=== PATIENT | female | born 1970 ===

== ENCOUNTER 2017-04-27 07:09 | Inpatient (IN) | payer MEDICARE, MEDICAID ==
[2017-04-27 07:10] VITALS: BMI 29.2
[2017-04-27] MEDS ORDERED: Naloxone 0.4 mg/ml Inj (Adult) ONE (07:44)
--- NOTE | 2017-04-27 07:56 | ED PDOC ---
HPI: Psych/Substance Abuse Time Seen by Provider: 04/27/17 07:18 Chief Complaint (Nursing): Substance Abuse Chief Complaint (Provider): Substance abuse History Per: Patient, Family History/Exam Limitations: no limitations Onset/Duration Of Symptoms: Days (x1) Current Symptoms Are (Timing): Still Present Suicide/Self Injury Attempted (Context): None Associated Symptoms: denies: Other (headache, vision changes or neck stiffness) Involuntary Hold By: None Additional History Per: EMS Additional Complaint(s): Monae Sanchez is a 47 year old female, with a past medical history of anxiety , bipolar disorder, and depression, who was brought to the emergency department by EMS accompanied by parents for drug abuse onset today. Patient admits to have used crack, cocaine, and heroin today. Patient denies any headache, visual changes or neck stiffness. Full HPI limited due to patient's condition. PMD: None provided. Past Medical History Reviewed: Historical Data, Nursing Documentation, Vital Signs Vital Signs: Last Vital Signs Temp Pulse 92 H 04/27/17 07:30 Resp 10 L 04/27/17 07:40 BP 135/100 H 04/27/17 07:30 Pulse Ox 80 L 04/27/17 07:40 - Medical History PMH: Anxiety, Bipolar Disorder, Depression, Hypercholesterolemia, Hyperthyroidism Denies: Diabetes, Hepatitis, HIV, HTN, Seizures, Sexually Transmitted Disease - Surgical History Surgical History: Denies: Pacemaker - Family History Family History: States: Unknown Family Hx - Social History Drugs: Cocaine, Opiates (heroin) - Immunization History Hx Tetanus Toxoid Vaccination: No Hx Influenza Vaccination: No Hx Pneumococcal Vaccination: No - Home Medications Home Medications: Ambulatory Orders Medication Instructions Recorded Levothyroxine [Synthroid] 100 mcg PO DAILY 10/26/16 Gabapentin [Neurontin] 400 mg PO TID 01/23/17 ARIPiprazole [Abilify] 2 mg PO HS 04/27/17 Apixaban [Eliquis] 5 mg PO Q12H 04/27/17 Citalopram [celEXA] 20 mg PO DAILY 04/27/17 Divalproex [Depakote DR] 500 mg PO BID 04/27/17 Mirtazapine [Remeron] 15 mg PO HS 04/27/17 Topiramate [Topamax] 50 mg PO HS 04/27/17 clonazePAM [Klonopin] 0.5 mg PO TID PRN 04/27/17 - Allergies Allergies/Adverse Reactions: Allergies Allergy/AdvReac Type Severity Reaction Status Date / Time meperidine [From Demerol] Allergy RASH Verified 01/26/17 10:51 shellfish derived Allergy SWELLING Verified 01/26/17 10:51 Review of Systems Constitutional: Positive for: Other (drug use) Eyes: Negative for: Vision Change Musculoskeletal: Negative for: Neck Pain (stiffness) Neurological: Negative for: Headache Physical Exam - Reviewed Nursing Documentation Reviewed: Yes Vital Signs Reviewed: Yes - Physical Exam Head Exam: Positive for: ATRAUMATIC, NORMAL INSPECTION, NORMOCEPHALIC Skin: Negative for: Warm (cold) Eye Exam: Positive for: Other (pinpoint pupils) Neck: Positive for: Normal, Painless ROM, Supple Cardiovascular/Chest: Positive for: Tachycardia (regular rhythm) Respiratory: Positive for: Normal Breath Sounds. Negative for: Respiratory Distress Neurologic/Psych: Positive for: Oriented (x3) Comments: Patient is arousable to verbal stimuli. Shaking body. - Laboratory Results Result Diagrams: 04/27/17 08:00 04/27/17 10:27 - ECG O2 Sat by Pulse Oximetry: 80 (RA) Pulse Ox Interpretation: Abnormal - Progress ED Course And Treament: Pt remains arousable to verbal stimuli, no complaints. Denies CURTIS, neck stiffness, visual changes. Re-evaluation Time: 11:52 - Physician Consult Information Time Consulting Physican Contacted: 12:38 Physician Contacted: Keith Kim Outcome Of Conversation: Recommends addition of Vancomycin 1 g IV. - Core Measure Core Measure Indicators: Code Sepsis - Critical Care Total Time (In Min): 100 Medical Decision Making Medical Decision Making: Initial Impression: substance abuse Initial Plan: --VBG Shock Panel --EKG --Alcohol serum --Comp Metabolic Panel --Drug screen, urine --HCG, Qualitative serum --Thyroid stimulating hormone --Troponin I --Urine dipstick --Urine --CBC w/ differential --PTT --PT --Chest portable [RAD] --Sodium Chloride IV 1,000 ml @ 125 mls/hr --Blood culture --Urine culture --Influenza A B --Urinalysis --reevaluation 0910 -Code sepsis called 1013 CXR FINDINGS: LUNGS: Somewhat triangular-shaped radiopaque density seen in the right medial lung base. Findings may represent atelectasis. Developing lower lobe infiltrates could be excluded with followup studies. PLEURA: No significant pleural effusion identified, no pneumothorax apparent. CARDIOVASCULAR: Normal. OSSEOUS STRUCTURES: No significant abnormalities. VISUALIZED UPPER ABDOMEN: Normal. OTHER FINDINGS: None. IMPRESSION: Radiopaque density in the right lung base could represent atelectasis and/or developing infiltrate right lung base. Scribe Attestation: Documented by Mayank Kern, acting as a scribe for Dimple Lee MD Provider Scribe Attestation: All medical record entries made by the Scribe were at my direction and personally dictated by me. I have reviewed the chart and agree that the record accurately reflects my personal performance of the history, physical exam, medical decision making, and the department course for this patient. I have also personally directed, reviewed, and agree with the discharge instructions and disposition. Procedures - Time-Out Correct Patient (with visual ID + MR# on ID Band): Yes Correct Procedure: Yes - Central Line Central Line Lumen: triple Central Line Procedure: betadine prep, sterile drapes applied, sterile dressing applied Central Line Postion: femoral (R) Anesthesia: Lidocaine Complications: none Central Line Post Position: good blood return Disposition - Clinical Impression Clinical Impression: Septic shock - Patient ED Disposition Is Patient to be Admitted: Yes - Disposition Disposition Time: 11:00 Condition: CRITICAL - Pt Status Changed To: Hospital Disposition Of: Inpatient - Admit Certification Admit to Inpatient:: After my assessment, the patient will require hospitalization for at least two midnights. This is because of the severity of symptoms shown, intensity of services needed, and/or the medical risk in this patient being treated as an outpatient. - POA Present On Arrival: None
[2017-04-27] MEDS ORDERED: Sodium Chloride 0.9% 1,000 ML IV STA (08:03)
[2017-04-27 08:14] LABS: BASO % 0.1 % (0.0-2.0); HEMATOCRIT 43.4 % (34.0-47.0); LYMPH # 1.5 K/uL (1.0-4.3); LYMPH % 8.3 % (20.0-40.0); MEAN CORPUSCULAR HGB CONC 31.5 g/dL (33.0-37.0); MEAN PLATELET VOLUME 7.6 fl (7.2-11.7); MONO # 0.8 K/uL (0.0-0.8); MONO % 4.6 % (0.0-10.0); NEUT # 16.1 K/uL (1.8-7.0); NRBC % 0.1 % (0.0-0.0); PLATELET COUNT 335 K/uL (130-400); RED CELL DISTRIBUTION WIDTH 16.1 % (11.5-14.5); WHITE BLOOD COUNT 18.5 K/uL (4.8-10.8)
[2017-04-27] MEDS ORDERED: Naloxone 0.4 mg/ml Inj (Adult) IVP STA (08:33)
[2017-04-27 08:49] LABS: ABG ALLEN TEST YES; ARTERIAL BLOOD GAS HCO3 17.3 mmol/L (21-28); ARTERIAL BLOOD GAS O2 CAPACITY 16.7 mL/dL (16-24); ARTERIAL BLOOD GAS O2 CONTENT 14.9 ML/dL (15-23); ARTERIAL BLOOD GAS PH 7.11 (7.35-7.45); ARTERIAL BLOOD GAS PO2 46 mm/Hg (80-100); ARTERIAL BLOOD HGB O2 SAT 83.8 % (95.0-98.0); CARBOXYHEMOGLOBIN 4.1 % (0.5-1.5); METHEMOGLOBIN 2.1 % (0.0-3.0)
[2017-04-27 08:59] LABS: PARTIAL THROMBOPLASTIN TIME 31.1 Seconds (25.6-37.1)
[2017-04-27 08:59] LABS: ALB/GLOB RATIO 1.1 (1.0-2.1); ALCOHOL SERUM < 10 mg/dl (0-10); ALKALINE PHOSPHATASE 116 U/L (38-126); ALT/SGPT 14 U/L (9-52); AST/SGOT 63 U/L (14-36); BILIRUBIN,TOTAL 1.3 mg/dl (0.2-1.3); BLOOD UREA NITROGEN 18 mg/dl (7-17); CALCIUM 9.5 mg/dL (8.4-10.2); CARBON DIOXIDE 16 mmol/L (22-30); CHLORIDE 108 mmol/L (98-107); GFR AFRICAN-AMERICAN 35; GLUCOSE,RANDOM 203 mg/dL (65-105); POTASSIUM 6.3 MMOL/L (3.6-5.0); SODIUM 145 mmol/l (132-148); TOTAL PROTEIN 10.1 G/DL (6.3-8.2)
[2017-04-27] MEDS ORDERED: Azithromycin 500 MG in Sodium Chloride 0.9% 250 ML IV STA (09:22)
[2017-04-27] MEDS ORDERED: cefTRIAXone IV 1 gm in Dextros 50 ML IVPB STA (09:22)
[2017-04-27] MEDS ORDERED: cefTRIAXone IV 1 gm in Dextros 50 ML IVPB ONE (09:42)
--- NOTE | 2017-04-27 10:15 | RAD ---
HISTORY: Hypothermia COMPARISON: No prior. FINDINGS: LUNGS: Somewhat triangular-shaped radiopaque density seen in the right medial lung base. Findings may represent atelectasis. Developing lower lobe infiltrates could be excluded with followup studies. PLEURA: No significant pleural effusion identified, no pneumothorax apparent. CARDIOVASCULAR: Normal. OSSEOUS STRUCTURES: No significant abnormalities. VISUALIZED UPPER ABDOMEN: Normal. OTHER FINDINGS: None. IMPRESSION: Radiopaque density in the right lung base could represent atelectasis and/or developing infiltrate right lung base.
[2017-04-27 10:24] LABS: RBC URINE 1 /hpf (0-3); URINE BACTERIA OCC (<OCC); URINE BILIRUBIN NEGATIVE (NEGATIVE); URINE BLOOD NEGATIVE (NEGATIVE); URINE COLOR YELLOW (YELLOW); URINE GLUCOSE (UA) >=500 mg/dL (Normal); URINE KETONE NEGATIVE (NEGATIVE); URINE LEUKOCYTE ESTERASE NEG Leu/uL (Negative); URINE PROTEIN 100 mg/dL (NEGATIVE); URINE UROBILINOGEN 0.2-1.0 mg/dL (0.2-1.0); WBC URINE 4 /hpf (0-5)
[2017-04-27] MEDS ORDERED: Cefepime 1 GM in Sodium Chloride 0.9% 100 ML IVPB STA (10:53)
[2017-04-27 10:56] LABS: POTASSIUM 3.7 MMOL/L (3.6-5.0)
[2017-04-27 11:08] LABS: T4 5.46 ug/dl (5.5-11.0)
[2017-04-27 11:38] LABS: NEUTROPHIL 79 % (42-75); TOTAL CELLS COUNTED 100
--- NOTE | 2017-04-27 13:20 | CP.CCUPN ---
CCU Subjective - Physician Review Events Since Last Encounter (Free Text): 04/27/17 17:03 The patient was Seen/interviewed and examined by me at the [facility], Medical records reviewed and Management issues were discussed and formulated with the house staff. 47 Years old active smoker Female with PMHx of Hypercholesterolemia, Hyperthyroidism, Anxiety, Bipolar Disorder, Depression and poly substance abuse Who was brought to the emergency department by EMS accompanied by parents for drug abuse and altered mental status. Patient admits to have used crack, cocaine, and heroin today. In the Emergency department, she was hypothermic to 88F, Hypotensive and CXR with possible RLL infilterate Code sepsis was called. Central line place, started on IV antibiotics, IV Fluids and vasopressors with Levophed initiated for persistant hypotension ROS positive for productive cough SOB, VANEGAS, No CP denies dysuria, flank tenderness No abd pain no n/v/d Patient denies any headache, visual changes or neck stiffness. Initial ABG with severe respiratory and metabolic acidosis, Patient admitted to ICU on 100% NRM CCU Objective - Vital Signs / Intake & Output Vital Signs (Last 4 hours): Vital Signs Temp Pulse Pulse Resp BP Pulse Ox 04/27/17 13:00 78 7 L 79/47 L 98 04/27/17 12:43 80 L 04/27/17 12:27 96.4 F L 93 H 13 76/40 L 80 L 04/27/17 12:19 97.7 F 85 11 L 83/50 L 95 04/27/17 12:17 83 11 L 97 04/27/17 11:30 96.4 F L 93 H 13 76/40 L 04/27/17 11:15 96.4 F L 93 H 13 76/40 L 88 L 04/27/17 10:20 84 15 81/49 L 100 04/27/17 10:10 83 13 91/48 L 100 04/27/17 10:00 84 18 96/52 L 100 04/27/17 09:46 86 11 L 83/55 L 100 04/27/17 09:37 88 9 L 88/56 L 100 04/27/17 09:26 89 10 L 95/63 L 99 Intake and Output (Last 8hrs): Intake & Output 04/26/17 04/27/17 04/27/17 22:59 06:59 14:59 Weight 140 lb - Physical Exam Physical Exam Limitations: Positive for: Clinical Condition Head: Positive for: Atraumatic, Normocephalic. Negative for: Tenderness, Contusion, Swelling, Ecchymosis Pupils: Positive for: PERRL, Sluggish. Negative for: Non-Reactive, Pinpoint Extroacular Muscles: Positive for: EOMI Conjunctiva: Positive for: Normal. Negative for: Injected, Icteric Ears: Positive for: Normal Mouth: Positive for: Moist Mucous Membranes Nose (Internal): Positive for: Normal Inspection, No Active Bleeding Neck: Positive for: Normal Range of Motion, Trachea Midline. Negative for: Meningeal Signs, MIDLINE TENDERNESS, Paraspinal Tenderness, JVD, Lymphadenopathy , Bruit, Other Respiratory/Chest: Positive for: Good Air Exchange, Decreased Breath Sounds, Rhonchi, Tachypneic. Negative for: Respiratory Distress, Accessory Muscle Use, Wheezes, Rales, Retracting Cardiovascular: Positive for: Regular Rate and Rhythm, Normal S1, S2, Peripheal Pulses Present. Negative for: Murmurs, Irregular Rhythm, Tachycardic, Bradycardic Abdomen: Positive for: Normal Bowel Sounds. Negative for: Tenderness, Distention, Peritoneal Signs Back: Positive for: Normal Inspection. Negative for: CVA Tenderness Upper Extremity: Positive for: Normal Inspection, Normal ROM, NORMAL PULSES, Capillary Refill < 2s. Negative for: Cyanosis, Edema, Tenderness, Swelling Lower Extremity: Positive for: Normal Inspection, Capillary Refill < 2 s. Negative for: CALF TENDERNESS Neurological: Positive for: GCS=15, CN II-XII Intact, Speech Normal, Motor Func Grossly Intact, Normal Sensory Function Psychiatric: Positive for: Alert, Oriented x 3 - Medications Active Medications: Active Medications Generic Name Dose Route Start Last Admin Trade Name Freq PRN Reason Stop Dose Admin Sodium Chloride 1,000 mls @ 125 mls/hr 04/27/17 08:03 04/27/17 08:05 Sodium Chloride 0.9% IV 04/27/17 16:02 125 mls/hr .Q8H STA Administration Sodium Chloride 1,900 mls @ 1,900 mls/hr 04/27/17 09:15 04/27/17 09:15 Sodium Chloride 0.9% IV 04/28/17 09:11 1,900 mls/hr .Q1H ANGIE Administration Norepinephrine Bitartrate 4 mg 254 mls @ 19.05 mls/hr 04/27/17 10:39 10:58 / Dextrose IV 5 mcg/min .[id number] PRN 19.05 mls/hr Titrate By MD Administration Protocol 5 MCG/MIN Vancomycin HCl 1 gm/ Sodium 250 mls @ 166.667 mls/hr 04/27/17 12:37 Chloride IVPB 04/27/17 14:06 STAT STA Protocol - Patient Studies Lab Studies: Lab Studies 04/27/17 04/27/17 04/27/17 Range/Units 10:40 10:27 09:37 WBC (4.8-10.8) K/uL RBC (3.80-5.20) Mil/uL Hgb (12.0-16.0) g/dL Hct (34.0-47.0) % MCV (81.0-99.0) fl MCH (27.0-31.0) pg MCHC (33.0-37.0) g/dL RDW (11.5-14.5) % Plt Count (130-400) K/uL MPV (7.2-11.7) fl Neut % (Auto) (50.0-75.0) % Lymph % (Auto) (20.0-40.0) % [place] % (Auto) (0.0-10.0) % Eos % (Auto) (0.0-4.0) % Baso % (Auto) (0.0-2.0) % Neut # (1.8-7.0) K/uL Lymph # (1.0-4.3) K/uL [place] # (0.0-0.8) K/uL Eos # (0.0-0.7) K/uL Baso # (0.0-0.2) K/uL Neutrophils % (Manual) (42-75) % Band Neutrophils % (0-2) % Lymphocytes % (Manual) (20-50) % Monocytes % (Manual) (0-10) % Toxic Granulation Platelet Estimate (NORMAL) Anisocytosis (manual) PT (9.8-13.1) Seconds INR (0.9-1.2) APTT (25.6-37.1) Seconds pCO2 (35-45) mm/Hg pO2 42 (30-55) mm/Hg HCO3 (21-28) mmol/L ABG pH (7.35-7.45) ABG Total CO2 (22-28) mmol/L ABG O2 Saturation (95-98) % ABG O2 Content (15-23) ML/dL ABG Base Excess (-2.0-3.0) mmol/L ABG Hemoglobin (11.7-17.4) g/dL ABG Carboxyhemoglobin (0.5-1.5) % POC ABG HHb (Measured) (0.0-5.0) % ABG Methemoglobin (0.0-3.0) % ABG O2 Capacity (16-24) mL/dL Gadiel Test VBG pH 7.12 L* (7.32-7.43) VBG pCO2 76 H* (40-60) mmHg VBG HCO3 19.0 mmol/L VBG Total CO2 27.0 (22-28) mmol/L VBG O2 Sat (Calc) 86.1 H (40-65) % VBG Base Excess -6.2 L (0.0-2.0) mmol/L VBG Potassium 3.8 (3.6-5.2) mmol/L A-a O2 Difference mm/Hg Hgb O2 Saturation (95.0-98.0) % Glucose 34 L* (65-105) mg/dL Lactate 1.3 (0.7-2.1) mmol/L FiO2 21 % Blood Gas Comments Yes Crit Value Called To Mu otero md Crit Value Called By Pn Crit Value Read Back Yes Blood Gas Notified Time 1035 Sodium 142.0 (132-148) mmol/l Potassium 3.7 (3.6-5.0) MMOL/L Chloride 115.0 H (98-107) mmol/L Carbon Dioxide (22-30) mmol/L Anion Gap (10-20) BUN (7-17) mg/dl Creatinine (0.7-1.2) mg/dl Est GFR ( Amer) Est GFR (Non-Af Amer) Random Glucose (65-105) mg/dL Calcium (8.4-10.2) mg/dL Total Bilirubin (0.2-1.3) mg/dl AST (14-36) U/L ALT (9-52) U/L Alkaline Phosphatase (38-126) U/L Troponin I (0.00-0.120) ng/mL Total Protein (6.3-8.2) G/DL Albumin (3.5-5.0) g/dL Globulin (2.2-3.9) gm/dL Albumin/Globulin Ratio (1.0-2.1) Thyroxine (T4) 5.46 L (5.5-11.0) ug/dl Total T3 0.635 L (1.49-2.60) nmol/L TSH 3rd Generation (0.46-4.68) mIU/ML Serum HCG, Qual (NEGATIVE) Venous Blood Potassium 3.8 (3.6-5.2) mmol/L Urine Color (YELLOW) Urine Clarity (Clear) Urine pH (5.0-8.0) Ur Specific [place] (1.003-1.030) Urine Protein (NEGATIVE) mg/dL Urine Glucose (UA) (Normal) mg/dL Urine Ketones (NEGATIVE) mg/dL Urine Blood (NEGATIVE) Urine Nitrate (NEGATIVE) Urine Bilirubin (NEGATIVE) Urine Urobilinogen (0.2-1.0) mg/dL Ur Leukocyte Esterase (Negative) Jihan/uL Urine RBC (Auto) (0-3) /hpf Urine Microscopic WBC (0-5) /hpf Ur Squamous Epith Cells (0-5) /hpf Amorphous Sediment (<OCC) /ul Urine Bacteria (<OCC) Hyaline Casts (0-2) /hpf Urine Opiates Screen Positive H (NEGATIVE) Urine Methadone Screen Negative (NEGATIVE) Ur Barbiturates Screen Negative (NEGATIVE) Ur Phencyclidine Scrn Negative (NEGATIVE) Ur Amphetamines Screen Negative (NEGATIVE) U Benzodiazepines Scrn Negative (NEGATIVE) U Oth Cocaine Metabols Positive H (NEGATIVE) U Cannabinoids Screen Negative (NEGATIVE) Alcohol, Quantitative (0-10) mg/dl Influenza Typ A,B (EIA) (NEGATIVE) 04/27/17 04/27/17 04/27/17 Range/Units 09:37 08:37 08:28 WBC (4.8-10.8) K/uL RBC (3.80-5.20) Mil/uL Hgb (12.0-16.0) g/dL Hct (34.0-47.0) % MCV (81.0-99.0) fl MCH (27.0-31.0) pg MCHC (33.0-37.0) g/dL RDW (11.5-14.5) % Plt Count (130-400) K/uL MPV (7.2-11.7) fl Neut % (Auto) (50.0-75.0) % Lymph % (Auto) (20.0-40.0) % [place] % (Auto) (0.0-10.0) % Eos % (Auto) (0.0-4.0) % Baso % (Auto) (0.0-2.0) % Neut # (1.8-7.0) K/uL Lymph # (1.0-4.3) K/uL [place] # (0.0-0.8) K/uL Eos # (0.0-0.7) K/uL Baso # (0.0-0.2) K/uL Neutrophils % (Manual) (42-75) % Band Neutrophils % (0-2) % Lymphocytes % (Manual) (20-50) % Monocytes % (Manual) (0-10) % Toxic Granulation Platelet Estimate (NORMAL) Anisocytosis (manual) PT (9.8-13.1) Seconds INR (0.9-1.2) APTT (25.6-37.1) Seconds pCO2 66 H (35-45) mm/Hg pO2 46 L (30-55) mm/Hg HCO3 17.3 L (21-28) mmol/L ABG pH 7.11 L* (7.35-7.45) ABG Total CO2 23.0 (22-28) mmol/L ABG O2 Saturation 89.3 L (95-98) % ABG O2 Content 14.9 L (15-23) ML/dL ABG Base Excess -9.3 L (-2.0-3.0) mmol/L ABG Hemoglobin 12.7 (11.7-17.4) g/dL ABG Carboxyhemoglobin 4.1 H (0.5-1.5) % POC ABG HHb (Measured) 10.0 H (0.0-5.0) % ABG Methemoglobin 2.1 (0.0-3.0) % ABG O2 Capacity 16.7 (16-24) mL/dL Gadiel Test Yes VBG pH (7.32-7.43) VBG pCO2 (40-60) mmHg VBG HCO3 mmol/L VBG Total CO2 (22-28) mmol/L VBG O2 Sat (Calc) (40-65) % VBG Base Excess (0.0-2.0) mmol/L VBG Potassium (3.6-5.2) mmol/L A-a O2 Difference 585.0 mm/Hg Hgb O2 Saturation 83.8 L (95.0-98.0) % Glucose (65-105) mg/dL Lactate (0.7-2.1) mmol/L FiO2 100.0 % Blood Gas Comments Rr Crit Value Called To Dr mu otero Crit Value Called By 15 Crit Value Read Back Y Blood Gas Notified Time 846 Sodium (132-148) mmol/l Potassium (3.6-5.0) MMOL/L Chloride (98-107) mmol/L Carbon Dioxide (22-30) mmol/L Anion Gap (10-20) BUN (7-17) mg/dl Creatinine (0.7-1.2) mg/dl Est GFR ( Amer) Est GFR (Non-Af Amer) Random Glucose (65-105) mg/dL Calcium (8.4-10.2) mg/dL Total Bilirubin (0.2-1.3) mg/dl AST (14-36) U/L ALT (9-52) U/L Alkaline Phosphatase (38-126) U/L Troponin I (0.00-0.120) ng/mL Total Protein (6.3-8.2) G/DL Albumin (3.5-5.0) g/dL Globulin (2.2-3.9) gm/dL Albumin/Globulin Ratio (1.0-2.1) Thyroxine (T4) (5.5-11.0) ug/dl Total T3 (1.49-2.60) nmol/L TSH 3rd Generation (0.46-4.68) mIU/ML Serum HCG, Qual Negative (NEGATIVE) Venous Blood Potassium (3.6-5.2) mmol/L Urine Color Yellow (YELLOW) Urine Clarity Cloudy (Clear) Urine pH 5.0 (5.0-8.0) Ur Specific [place] 1.015 (1.003-1.030) Urine Protein 100 (NEGATIVE) mg/dL Urine Glucose (UA) >=500 (Normal) mg/dL Urine Ketones Negative (NEGATIVE) mg/dL Urine Blood Negative (NEGATIVE) Urine Nitrate Negative (NEGATIVE) Urine Bilirubin Negative (NEGATIVE) Urine Urobilinogen 0.2-1.0 (0.2-1.0) mg/dL Ur Leukocyte Esterase Neg (Negative) Jihan/uL Urine RBC (Auto) 1 (0-3) /hpf Urine Microscopic WBC 4 (0-5) /hpf Ur Squamous Epith Cells 2 (0-5) /hpf Amorphous Sediment Rare H (<OCC) /ul Urine Bacteria Occ H (<OCC) Hyaline Casts 6-10 H (0-2) /hpf Urine Opiates Screen (NEGATIVE) Urine Methadone Screen (NEGATIVE) Ur Barbiturates Screen (NEGATIVE) Ur Phencyclidine Scrn (NEGATIVE) Ur Amphetamines Screen (NEGATIVE) U Benzodiazepines Scrn (NEGATIVE) U Oth Cocaine Metabols (NEGATIVE) U Cannabinoids Screen (NEGATIVE) Alcohol, Quantitative (0-10) mg/dl Influenza Typ A,B (EIA) (NEGATIVE) 04/27/17 04/27/17 04/27/17 Range/Units 08:28 08:10 08:04 WBC (4.8-10.8) K/uL RBC (3.80-5.20) Mil/uL Hgb (12.0-16.0) g/dL Hct (34.0-47.0) % MCV (81.0-99.0) fl MCH (27.0-31.0) pg MCHC (33.0-37.0) g/dL RDW (11.5-14.5) % Plt Count (130-400) K/uL MPV (7.2-11.7) fl Neut % (Auto) (50.0-75.0) % Lymph % (Auto) (20.0-40.0) % [place] % (Auto) (0.0-10.0) % Eos % (Auto) (0.0-4.0) % Baso % (Auto) (0.0-2.0) % Neut # (1.8-7.0) K/uL Lymph # (1.0-4.3) K/uL [place] # (0.0-0.8) K/uL Eos # (0.0-0.7) K/uL Baso # (0.0-0.2) K/uL Neutrophils % (Manual) (42-75) % Band Neutrophils % (0-2) % Lymphocytes % (Manual) (20-50) % Monocytes % (Manual) (0-10) % Toxic Granulation Platelet Estimate (NORMAL) Anisocytosis (manual) PT 10.8 (9.8-13.1) Seconds INR 1.0 (0.9-1.2) APTT 31.1 (25.6-37.1) Seconds pCO2 (35-45) mm/Hg pO2 (30-55) mm/Hg HCO3 (21-28) mmol/L ABG pH (7.35-7.45) ABG Total CO2 (22-28) mmol/L ABG O2 Saturation (95-98) % ABG O2 Content (15-23) ML/dL ABG Base Excess (-2.0-3.0) mmol/L ABG Hemoglobin (11.7-17.4) g/dL ABG Carboxyhemoglobin (0.5-1.5) % POC ABG HHb (Measured) (0.0-5.0) % ABG Methemoglobin (0.0-3.0) % ABG O2 Capacity (16-24) mL/dL Gadiel Test VBG pH (7.32-7.43) VBG pCO2 (40-60) mmHg VBG HCO3 mmol/L VBG Total CO2 (22-28) mmol/L VBG O2 Sat (Calc) (40-65) % VBG Base Excess (0.0-2.0) mmol/L VBG Potassium (3.6-5.2) mmol/L A-a O2 Difference mm/Hg Hgb O2 Saturation (95.0-98.0) % Glucose (65-105) mg/dL Lactate (0.7-2.1) mmol/L FiO2 % Blood Gas Comments Crit Value Called To Mu otero md Crit Value Called By Pn Crit Value Read Back Y Blood Gas Notified Time 1035 Sodium (132-148) mmol/l Potassium (3.6-5.0) MMOL/L Chloride (98-107) mmol/L Carbon Dioxide (22-30) mmol/L Anion Gap (10-20) BUN (7-17) mg/dl Creatinine (0.7-1.2) mg/dl Est GFR ( Amer) Est GFR (Non-Af Amer) Random Glucose (65-105) mg/dL Calcium (8.4-10.2) mg/dL Total Bilirubin (0.2-1.3) mg/dl AST (14-36) U/L ALT (9-52) U/L Alkaline Phosphatase (38-126) U/L Troponin I (0.00-0.120) ng/mL Total Protein (6.3-8.2) G/DL Albumin (3.5-5.0) g/dL Globulin (2.2-3.9) gm/dL Albumin/Globulin Ratio (1.0-2.1) Thyroxine (T4) (5.5-11.0) ug/dl Total T3 (1.49-2.60) nmol/L TSH 3rd Generation (0.46-4.68) mIU/ML Serum HCG, Qual (NEGATIVE) Venous Blood Potassium (3.6-5.2) mmol/L Urine Color (YELLOW) Urine Clarity (Clear) Urine pH (5.0-8.0) Ur Specific [place] (1.003-1.030) Urine Protein (NEGATIVE) mg/dL Urine Glucose (UA) (Normal) mg/dL Urine Ketones (NEGATIVE) mg/dL Urine Blood (NEGATIVE) Urine Nitrate (NEGATIVE) Urine Bilirubin (NEGATIVE) Urine Urobilinogen (0.2-1.0) mg/dL Ur Leukocyte Esterase (Negative) Jihan/uL Urine RBC (Auto) (0-3) /hpf Urine Microscopic WBC (0-5) /hpf Ur Squamous Epith Cells (0-5) /hpf Amorphous Sediment (<OCC) /ul Urine Bacteria (<OCC) Hyaline Casts (0-2) /hpf Urine Opiates Screen (NEGATIVE) Urine Methadone Screen (NEGATIVE) Ur Barbiturates Screen (NEGATIVE) Ur Phencyclidine Scrn (NEGATIVE) Ur Amphetamines Screen (NEGATIVE) U Benzodiazepines Scrn (NEGATIVE) U Oth Cocaine Metabols (NEGATIVE) U Cannabinoids Screen (NEGATIVE) Alcohol, Quantitative (0-10) mg/dl Influenza Typ A,B (EIA) Negative for flu a/b (NEGATIVE) 04/27/17 04/27/17 Range/Units 08:00 08:00 WBC 18.5 H (4.8-10.8) K/uL RBC 4.88 (3.80-5.20) Mil/uL Hgb 13.7 (12.0-16.0) g/dL Hct 43.4 (34.0-47.0) % MCV 89.0 (81.0-99.0) fl MCH 28.0 (27.0-31.0) pg MCHC 31.5 L (33.0-37.0) g/dL RDW 16.1 H (11.5-14.5) % Plt Count 335 (130-400) K/uL MPV 7.6 (7.2-11.7) fl Neut % (Auto) 87.0 H (50.0-75.0) % Lymph % (Auto) 8.3 L (20.0-40.0) % [place] % (Auto) 4.6 (0.0-10.0) % Eos % (Auto) 0.0 (0.0-4.0) % Baso % (Auto) 0.1 (0.0-2.0) % Neut # 16.1 H (1.8-7.0) K/uL Lymph # 1.5 (1.0-4.3) K/uL [place] # 0.8 (0.0-0.8) K/uL Eos # 0.0 (0.0-0.7) K/uL Baso # 0.0 (0.0-0.2) K/uL Neutrophils % (Manual) 79 H (42-75) % Band Neutrophils % 2 (0-2) % Lymphocytes % (Manual) 13 L (20-50) % Monocytes % (Manual) 6 (0-10) % Toxic Granulation Present Platelet Estimate Normal (NORMAL) Anisocytosis (manual) Slight PT (9.8-13.1) Seconds INR (0.9-1.2) APTT (25.6-37.1) Seconds pCO2 (35-45) mm/Hg pO2 (30-55) mm/Hg HCO3 (21-28) mmol/L ABG pH (7.35-7.45) ABG Total CO2 (22-28) mmol/L ABG O2 Saturation (95-98) % ABG O2 Content (15-23) ML/dL ABG Base Excess (-2.0-3.0) mmol/L ABG Hemoglobin (11.7-17.4) g/dL ABG Carboxyhemoglobin (0.5-1.5) % POC ABG HHb (Measured) (0.0-5.0) % ABG Methemoglobin (0.0-3.0) % ABG O2 Capacity (16-24) mL/dL Gadiel Test VBG pH (7.32-7.43) VBG pCO2 (40-60) mmHg VBG HCO3 mmol/L VBG Total CO2 (22-28) mmol/L VBG O2 Sat (Calc) (40-65) % VBG Base Excess (0.0-2.0) mmol/L VBG Potassium (3.6-5.2) mmol/L A-a O2 Difference mm/Hg Hgb O2 Saturation (95.0-98.0) % Glucose (65-105) mg/dL Lactate (0.7-2.1) mmol/L FiO2 % Blood Gas Comments Crit Value Called To Crit Value Called By Crit Value Read Back Blood Gas Notified Time Sodium 145 (132-148) mmol/l Potassium 6.3 H* (3.6-5.0) MMOL/L Chloride 108 H (98-107) mmol/L Carbon Dioxide 16 L (22-30) mmol/L Anion Gap 27 H (10-20) BUN 18 H (7-17) mg/dl Creatinine 1.9 H (0.7-1.2) mg/dl Est GFR ( Amer) 35 Est GFR (Non-Af Amer) 29 Random Glucose 203 H (65-105) mg/dL Calcium 9.5 (8.4-10.2) mg/dL Total Bilirubin 1.3 (0.2-1.3) mg/dl AST 63 H (14-36) U/L ALT 14 (9-52) U/L Alkaline Phosphatase 116 (38-126) U/L Troponin I 0.0660 (0.00-0.120) ng/mL Total Protein 10.1 H (6.3-8.2) G/DL Albumin 5.3 H (3.5-5.0) g/dL Globulin 4.8 H (2.2-3.9) gm/dL Albumin/Globulin Ratio 1.1 (1.0-2.1) Thyroxine (T4) (5.5-11.0) ug/dl Total T3 (1.49-2.60) nmol/L TSH 3rd Generation 43.80 H (0.46-4.68) mIU/ML Serum HCG, Qual (NEGATIVE) Venous Blood Potassium (3.6-5.2) mmol/L Urine Color (YELLOW) Urine Clarity (Clear) Urine pH (5.0-8.0) Ur Specific [place] (1.003-1.030) Urine Protein (NEGATIVE) mg/dL Urine Glucose (UA) (Normal) mg/dL Urine Ketones (NEGATIVE) mg/dL Urine Blood (NEGATIVE) Urine Nitrate (NEGATIVE) Urine Bilirubin (NEGATIVE) Urine Urobilinogen (0.2-1.0) mg/dL Ur Leukocyte Esterase (Negative) Jihan/uL Urine RBC (Auto) (0-3) /hpf Urine Microscopic WBC (0-5) /hpf Ur Squamous Epith Cells (0-5) /hpf Amorphous Sediment (<OCC) /ul Urine Bacteria (<OCC) Hyaline Casts (0-2) /hpf Urine Opiates Screen (NEGATIVE) Urine Methadone Screen (NEGATIVE) Ur Barbiturates Screen (NEGATIVE) Ur Phencyclidine Scrn (NEGATIVE) Ur Amphetamines Screen (NEGATIVE) U Benzodiazepines Scrn (NEGATIVE) U Oth Cocaine Metabols (NEGATIVE) U Cannabinoids Screen (NEGATIVE) Alcohol, Quantitative < 10 (0-10) mg/dl Influenza Typ A,B (EIA) (NEGATIVE) Laboratory Results - last 24 hr 04/27/17 04/27/17 04/27/17 08:00 08:00 08:04 WBC 18.5 H RBC 4.88 Hgb 13.7 Hct 43.4 MCV 89.0 MCH 28.0 MCHC 31.5 L RDW 16.1 H Plt Count 335 MPV 7.6 Neut % (Auto) 87.0 H Lymph % (Auto) 8.3 L [place] % (Auto) 4.6 Eos % (Auto) 0.0 Baso % (Auto) 0.1 Neut # 16.1 H Lymph # 1.5 [place] # 0.8 Eos # 0.0 Baso # 0.0 Neutrophils % (Manual) 79 H Band Neutrophils % 2 Lymphocytes % (Manual) 13 L Monocytes % (Manual) 6 Toxic Granulation Present Platelet Estimate Normal Anisocytosis (manual) Slight PT INR APTT pCO2 pO2 HCO3 ABG pH ABG Total CO2 ABG O2 Saturation ABG O2 Content ABG Base Excess ABG Hemoglobin ABG Carboxyhemoglobin POC ABG HHb (Measured) ABG Methemoglobin ABG O2 Capacity Gadiel Test VBG pH VBG pCO2 VBG HCO3 VBG Total CO2 VBG O2 Sat (Calc) VBG Base Excess VBG Potassium A-a O2 Difference Hgb O2 Saturation Glucose Lactate FiO2 Blood Gas Comments Crit Value Called To Mu otero md Crit Value Called By Pn Crit Value Read Back Y Blood Gas Notified Time 1035 Sodium 145 Potassium 6.3 H* Chloride 108 H Carbon Dioxide 16 L Anion Gap 27 H BUN 18 H Creatinine 1.9 H Est GFR ( Amer) 35 Est GFR (Non-Af Amer) 29 Random Glucose 203 H Calcium 9.5 Total Bilirubin 1.3 AST 63 H ALT 14 Alkaline Phosphatase 116 Troponin I 0.0660 Total Protein 10.1 H Albumin 5.3 H Globulin 4.8 H Albumin/Globulin Ratio 1.1 Thyroxine (T4) Total T3 TSH 3rd Generation 43.80 H Serum HCG, Qual Venous Blood Potassium Urine Color Urine Clarity Urine pH Ur Specific [place] Urine Protein Urine Glucose (UA) Urine Ketones Urine Blood Urine Nitrate Urine Bilirubin Urine Urobilinogen Ur Leukocyte Esterase Urine RBC (Auto) Urine Microscopic WBC Ur Squamous Epith Cells Amorphous Sediment Urine Bacteria Hyaline Casts Urine Opiates Screen Urine Methadone Screen Ur Barbiturates Screen Ur Phencyclidine Scrn Ur Amphetamines Screen U Benzodiazepines Scrn U Oth Cocaine Metabols U Cannabinoids Screen Alcohol, Quantitative < 10 Influenza Typ A,B (EIA) 04/27/17 04/27/17 04/27/17 08:10 08:28 08:28 WBC RBC Hgb Hct MCV MCH MCHC RDW Plt Count MPV Neut % (Auto) Lymph % (Auto) [place] % (Auto) Eos % (Auto) Baso % (Auto) Neut # Lymph # [place] # Eos # Baso # Neutrophils % (Manual) Band Neutrophils % Lymphocytes % (Manual) Monocytes % (Manual) Toxic Granulation Platelet Estimate Anisocytosis (manual) PT 10.8 INR 1.0 APTT 31.1 pCO2 pO2 HCO3 ABG pH ABG Total CO2 ABG O2 Saturation ABG O2 Content ABG Base Excess ABG Hemoglobin ABG Carboxyhemoglobin POC ABG HHb (Measured) ABG Methemoglobin ABG O2 Capacity Gadiel Test VBG pH VBG pCO2 VBG HCO3 VBG Total CO2 VBG O2 Sat (Calc) VBG Base Excess VBG Potassium A-a O2 Difference Hgb O2 Saturation Glucose Lactate FiO2 Blood Gas Comments Crit Value Called To Crit Value Called By Crit Value Read Back Blood Gas Notified Time Sodium Potassium Chloride Carbon Dioxide Anion Gap BUN Creatinine Est GFR ( Amer) Est GFR (Non-Af Amer) Random Glucose Calcium Total Bilirubin AST ALT Alkaline Phosphatase Troponin I Total Protein Albumin Globulin Albumin/Globulin Ratio Thyroxine (T4) Total T3 TSH 3rd Generation Serum HCG, Qual Negative Venous Blood Potassium Urine Color Urine Clarity Urine pH Ur Specific [place] Urine Protein Urine Glucose (UA) Urine Ketones Urine Blood Urine Nitrate Urine Bilirubin Urine Urobilinogen Ur Leukocyte Esterase Urine RBC (Auto) Urine Microscopic WBC Ur Squamous Epith Cells Amorphous Sediment Urine Bacteria Hyaline Casts Urine Opiates Screen Urine Methadone Screen Ur Barbiturates Screen Ur Phencyclidine Scrn Ur Amphetamines Screen U Benzodiazepines Scrn U Oth Cocaine Metabols U Cannabinoids Screen Alcohol, Quantitative Influenza Typ A,B (EIA) Negative for flu a/b 04/27/17 04/27/17 04/27/17 08:37 09:37 09:37 WBC RBC Hgb Hct MCV MCH MCHC RDW Plt Count MPV Neut % (Auto) Lymph % (Auto) [place] % (Auto) Eos % (Auto) Baso % (Auto) Neut # Lymph # [place] # Eos # Baso # Neutrophils % (Manual) Band Neutrophils % Lymphocytes % (Manual) Monocytes % (Manual) Toxic Granulation Platelet Estimate Anisocytosis (manual) PT INR APTT pCO2 66 H pO2 46 L HCO3 17.3 L ABG pH 7.11 L* ABG Total CO2 23.0 ABG O2 Saturation 89.3 L ABG O2 Content 14.9 L ABG Base Excess -9.3 L ABG Hemoglobin 12.7 ABG Carboxyhemoglobin 4.1 H POC ABG HHb (Measured) 10.0 H ABG Methemoglobin 2.1 ABG O2 Capacity 16.7 Gadiel Test Yes VBG pH VBG pCO2 VBG HCO3 VBG Total CO2 VBG O2 Sat (Calc) VBG Base Excess VBG Potassium A-a O2 Difference 585.0 Hgb O2 Saturation 83.8 L Glucose Lactate FiO2 100.0 Blood Gas Comments Rr Crit Value Called To Dr mu otero Crit Value Called By 15 Crit Value Read Back Y Blood Gas Notified Time 846 Sodium Potassium Chloride Carbon Dioxide Anion Gap BUN Creatinine Est GFR ( Amer) Est GFR (Non-Af Amer) Random Glucose Calcium Total Bilirubin AST ALT Alkaline Phosphatase Troponin I Total Protein Albumin Globulin Albumin/Globulin Ratio Thyroxine (T4) Total T3 TSH 3rd Generation Serum HCG, Qual Venous Blood Potassium Urine Color Yellow Urine Clarity Cloudy Urine pH 5.0 Ur Specific [place] 1.015 Urine Protein 100 Urine Glucose (UA) >=500 Urine Ketones Negative Urine Blood Negative Urine Nitrate Negative Urine Bilirubin Negative Urine Urobilinogen 0.2-1.0 Ur Leukocyte Esterase Neg Urine RBC (Auto) 1 Urine Microscopic WBC 4 Ur Squamous Epith Cells 2 Amorphous Sediment Rare H Urine Bacteria Occ H Hyaline Casts 6-10 H Urine Opiates Screen Positive H Urine Methadone Screen Negative Ur Barbiturates Screen Negative Ur Phencyclidine Scrn Negative Ur Amphetamines Screen Negative U Benzodiazepines Scrn Negative U Oth Cocaine Metabols Positive H U Cannabinoids Screen Negative Alcohol, Quantitative Influenza Typ A,B (EIA) 04/27/17 04/27/17 10:27 10:40 WBC RBC Hgb Hct MCV MCH MCHC RDW Plt Count MPV Neut % (Auto) Lymph % (Auto) [place] % (Auto) Eos % (Auto) Baso % (Auto) Neut # Lymph # [place] # Eos # Baso # Neutrophils % (Manual) Band Neutrophils % Lymphocytes % (Manual) Monocytes % (Manual) Toxic Granulation Platelet Estimate Anisocytosis (manual) PT INR APTT pCO2 pO2 42 HCO3 ABG pH ABG Total CO2 ABG O2 Saturation ABG O2 Content ABG Base Excess ABG Hemoglobin ABG Carboxyhemoglobin POC ABG HHb (Measured) ABG Methemoglobin ABG O2 Capacity Gadiel Test VBG pH 7.12 L* VBG pCO2 76 H* VBG HCO3 19.0 VBG Total CO2 27.0 VBG O2 Sat (Calc) 86.1 H VBG Base Excess -6.2 L VBG Potassium 3.8 A-a O2 Difference Hgb O2 Saturation Glucose 34 L* Lactate 1.3 FiO2 21 Blood Gas Comments Yes Crit Value Called To Mu otero md Crit Value Called By Pn Crit Value Read Back Yes Blood Gas Notified Time 1035 Sodium 142.0 Potassium 3.7 Chloride 115.0 H Carbon Dioxide Anion Gap BUN Creatinine Est GFR ( Amer) Est GFR (Non-Af Amer) Random Glucose Calcium Total Bilirubin AST ALT Alkaline Phosphatase Troponin I Total Protein Albumin Globulin Albumin/Globulin Ratio Thyroxine (T4) 5.46 L Total T3 0.635 L TSH 3rd Generation Serum HCG, Qual Venous Blood Potassium 3.8 Urine Color Urine Clarity Urine pH Ur Specific [place] Urine Protein Urine Glucose (UA) Urine Ketones Urine Blood Urine Nitrate Urine Bilirubin Urine Urobilinogen Ur Leukocyte Esterase Urine RBC (Auto) Urine Microscopic WBC Ur Squamous Epith Cells Amorphous Sediment Urine Bacteria Hyaline Casts Urine Opiates Screen Urine Methadone Screen Ur Barbiturates Screen Ur Phencyclidine Scrn Ur Amphetamines Screen U Benzodiazepines Scrn U Oth Cocaine Metabols U Cannabinoids Screen Alcohol, Quantitative Influenza Typ A,B (EIA) EKG/Cardiology Studies: Cardiology / EKG Studies 04/27/17 08:02 EKG [ELECTROCARDIOGRAM] Stat Comment: Mode Of Transportation: PORTABLE Reason For Exam: SOB 04/27/17 08:38 EKG [ELECTROCARDIOGRAM] Stat Comment: Mode Of Transportation: PORTABLE Reason For Exam: SOB Fingerstick Blood Sugar Results: 216 Review of Systems - Cardiovascular Cardiovascular: absent: Chest Pain, Chest Pain at Rest, Chest Pain with Activity , Claudication, Diaphoresis - Respiratory Respiratory: Cough, Dyspnea. absent: Hemoptysis, Wheezing, Snoring - Gastrointestinal Gastrointestinal: absent: Abdominal Pain, Change in Bowel Habits - Musculoskeletal Musculoskeletal: absent: Arthralgias, Back Pain, Joint Swelling Critical Care Progress Note - Extremities/Vascular Does the Patient have a Central Venous Catheter?: Yes Does the Patient need a Central Venous Catheter?: Yes Does the Patient have a Diaz Catheter?: No Does the Patient need a Diaz Catheter?: No Assessment/Plan (1) Septic shock Current Visit: Yes Status: Acute (2) Anxiety Current Visit: No Status: Acute (3) CAP (community acquired pneumonia) Current Visit: Yes Status: Acute (4) Polysubstance abuse Current Visit: Yes Status: Acute - Assessment and Plan (Free Text) Assessment: Admitted to ICU care for hemodynamic and Respiratory monitoring Wean Levophed as tolerated Continue IV Vancomycin and Maxipime IV Volume resuscitations Monitor Input/Output Continue levophed for BP support, wean as tolerated Maintain MAP 65-75 Aggressive pulmonary toilet, chest PT, suctioning Albuterol/Ipratropium INH RQ4 Maintain aspiration precautions GI/DVT PPX
[2017-04-27 17:00] LABS: VENOUS BLOOD GAS BASE EXCESS -8.8 mmol/L (0.0-2.0); VENOUS BLOOD GAS PCO2 46 mmHg (40-60); VENOUS BLOOD PH 7.22 (7.32-7.43)
[2017-04-27] MEDS ORDERED: Sodium Chloride 0.9% 1,000 ML IV SCH (17:15)
--- NOTE | 2017-04-27 17:54 | PCM.SEPTIC ---
Sepsis Progress Note - Reassessment Type Date of Evaluation: 04/27/17 Time of Evaluation: 15:00 Reassessment Type: Non-invasive reassessment - Non Invasive Reassessment Were the most recent vital sign reviewed: Yes Vital Sign (Latest): Temp Pulse Resp BP Pulse Ox 98.4 F 78 10 L 93/58 L 97 04/27/17 16:00 04/27/17 17:05 04/27/17 17:05 04/27/17 17:05 04/27/17 17:05 Cardiovascular: Yes: Regular Rate, Rhythm. No: Chest Non Tender, Edema, Gallop , JVD, Murmur, Bradycardia, Tachycardia Respiratory: Yes: Decreased Breath Sounds, Rhonchi. No: Accessory Muscle Use, Rales Capillary Refill: Normal (Less than 2 sec) Pulses: Normal Radial, Normal Dorsalis Pedis, Normal Posterior Tibialis Skin: Normal Color, Warm
[2017-04-27] MEDS: Sodium Chloride 0.9% 1,000 ML IV SCH ×2 (18:09→22:28)
[2017-04-27 18:22] LABS: RBC URINE 9 /hpf (0-3); URINE BACTERIA RARE (<OCC); URINE BILIRUBIN NEGATIVE (NEGATIVE); URINE BLOOD SMALL (NEGATIVE); URINE COLOR YELLOW (YELLOW); URINE GLUCOSE (UA) 50 mg/dL (Normal); URINE KETONE TRACE mg/dL (NEGATIVE); URINE LEUKOCYTE ESTERASE NEG Leu/uL (Negative); URINE PROTEIN 30 mg/dL (NEGATIVE); URINE UROBILINOGEN 0.2-1.0 mg/dL (0.2-1.0)
[2017-04-27 18:24] LABS: WBC URINE 4 /hpf (0-5)
[2017-04-27] MEDS: Divalproex 500 mg DR(BID formulation) PO SCH (19:56)
[2017-04-27] MEDS: Cefepime 1 GM in Sodium Chloride 0.9% 100 ML IVPB SCH (22:30)
--- NOTE | 2017-04-28 00:19 | CARD ---
APPROVED REPORT EKG Measurement Heart [id number] [id number] <Conclusion> Normal sinus rhythm Nonspecific ST abnormality Abnormal ECG
--- NOTE | 2017-04-28 00:21 | CARD ---
APPROVED REPORT EKG Measurement Heart [id number] <Conclusion> Normal sinus rhythm Possible Left atrial enlargement Nonspecific ST abnormality Abnormal ECG
[2017-04-28 05:40] LABS: BASO % 0.2 % (0.0-2.0); EOS % 0.1 % (0.0-4.0); HEMATOCRIT 32.5 % (34.0-47.0); LYMPH # 1.8 K/uL (1.0-4.3); LYMPH % 17.3 % (20.0-40.0); MEAN CELL VOLUME 86.5 fl (81.0-99.0); MEAN CORPUSCULAR HEMOGLOBIN 27.5 pg (27.0-31.0); MEAN CORPUSCULAR HGB CONC 31.8 g/dL (33.0-37.0); MEAN PLATELET VOLUME 7.6 fl (7.2-11.7); MONO # 0.4 K/uL (0.0-0.8); MONO % 4.1 % (0.0-10.0); NEUT # 8.4 K/uL (1.8-7.0); NEUT % 78.3 % (50.0-75.0); RED CELL DISTRIBUTION WIDTH 14.7 % (11.5-14.5); WHITE BLOOD COUNT 10.7 K/uL (4.8-10.8)
[2017-04-28 05:45] LABS: ALB/GLOB RATIO 0.9 (1.0-2.1); ALKALINE PHOSPHATASE 53 U/L (38-126); ALT/SGPT 32 U/L (9-52); AST/SGOT 34 U/L (14-36); BILIRUBIN,TOTAL 0.1 mg/dl (0.2-1.3); BLOOD UREA NITROGEN 11 mg/dl (7-17); CALCIUM 7.9 mg/dL (8.4-10.2); CARBON DIOXIDE 23 mmol/L (22-30); CHLORIDE 115 mmol/L (98-107); GFR AFRICAN-AMERICAN > 60; GLUCOSE,RANDOM 67 mg/dL (65-105); POTASSIUM 3.5 MMOL/L (3.6-5.0); SODIUM 141 mmol/l (132-148); TOTAL PROTEIN 5.7 G/DL (6.3-8.2)
[2017-04-28] MEDS ORDERED: Levothyroxine 100 MCG TAB PO SCH ×2 (06:30→08:45)
[2017-04-28] MEDS: Divalproex 500 mg DR(BID formulation) PO SCH ×2 (08:43→16:20)
[2017-04-28] MEDS: Cefepime 1 GM in Sodium Chloride 0.9% 100 ML IVPB SCH ×2 (08:43→22:05)
--- NOTE | 2017-04-28 08:43 | CP.PCM.HP ---
<Patricia Back - Last Filed: 04/28/17 08:34> History of Present Illness - History of Present Illness History of Present Illness: 47 y/o F with PMHx of HYpothyroidism, Hypercholesterolemia, Anxiety, Bipolar disorder, Depression and Poly substance abuse, as per records patient was brought yesterday to ED by EMS accompanied by her parents for drug abuse, and altered mental status, and admitted in ICU unit with septic shock most likely secondary to Pneumonia. In the ED patient was hypothermic, Hypotensive, and Code sepsis was called. Patient seen and examined with attending Dr. Hyatt in ICU unit this morning. Awake, alert and oriented x 3. Had a low grade fever at midnight of 99.7 F, BP still low, however improving. Present on Admission - Present on Admission Any Indicators Present on Admission: No History of DVT/PE: Yes History of Uncontrolled Diabetes: No Urinary Catheter: No Decubitus Ulcer Present: No Review of Systems - Review of Systems All systems: reviewed and no additional remarkable complaints except (as per HPI ) Past Patient History - Infectious Disease Hx of Infectious Diseases: None - Past Medical History & Family History Past Medical History?: Yes - Past Social History Drugs: Cocaine, Opiates (heroin) - CARDIAC Hx Hypercholesterolemia: Yes Hx Hypertension: No Hx Pacemaker: No - PULMONARY Hx Respiratory Disorders: Yes Hx Asthma: Yes Hx Tuberculosis: No - NEUROLOGICAL Hx Seizures: No - HEENT Hx HEENT Problems: Yes (eyeglasses) - RENAL Hx Chronic Kidney Disease: No - ENDOCRINE/METABOLIC Hx Hyperthyroidism: Yes - HEMATOLOGICAL/ONCOLOGICAL Hx Human Immunodeficiency Virus (HIV): No - INTEGUMENTARY Hx Dermatological Problems: No - MUSCULOSKELETAL/RHEUMATOLOGICAL Hx Musculoskeletal Disorders: No Hx Falls: No - GASTROINTESTINAL Hx Gastrointestinal Disorders: No - GENITOURINARY/GYNECOLOGICAL Hx Sexually Transmitted Disorders: No - PSYCHIATRIC Hx Anxiety: Yes Hx Bipolar Disorder: Yes Hx Depression: Yes - SURGICAL HISTORY Hx Surgeries: Yes (c sec x2) Hx Hysterectomy: Yes Other/Comment: iliac vein stent, stent to left exterior iliac vein and left femoral vein thrombus history in chart. - ANESTHESIA Hx Anesthesia: Yes Hx Anesthesia Reactions: No Hx Malignant Hyperthermia: No Has any member of the family had a problem w/ anesthesia?: No Meds Allergies/Adverse Reactions: Allergies Allergy/AdvReac Type Severity Reaction Status Date / Time meperidine [From Demerol] Allergy RASH Verified 01/26/17 10:51 shellfish derived Allergy SWELLING Verified 01/26/17 10:51 Physical Exam - Constitutional Appears: No Acute Distress - ENT Exam ENT Exam: Mucous Membranes Moist - Respiratory Exam Respiratory Exam: Decreased Breath Sounds, NORMAL BREATHING PATTERN - Cardiovascular Exam Cardiovascular Exam: REGULAR RHYTHM, +S1, +S2 - GI/Abdominal Exam GI & Abdominal Exam: Normal Bowel Sounds, Soft. absent: Distended, Guarding, Tenderness - Extremities Exam Extremities exam: Positive for: normal inspection. Negative for: calf tenderness, pedal edema - Neurological Exam Neurological exam: Alert, Oriented x3 - Skin Skin Exam: Dry, Intact, Normal Color Results - Vital Signs Recent Vital Signs: Last Vital Signs Temp 98.3 F 04/28/17 08:00 Pulse 90 04/28/17 08:00 Resp 11 L 04/28/17 08:00 BP 111/77 04/28/17 08:00 Pulse Ox 100 04/28/17 08:00 - Labs Result Diagrams: 04/28/17 04:25 04/28/17 04:25 Labs: Laboratory Results - last 24 hr 04/27/17 04/27/17 04/27/17 07:32 08:00 08:00 WBC RBC Hgb Hct MCV MCH MCHC RDW Plt Count MPV Neut % (Auto) Lymph % (Auto) Garza % (Auto) Eos % (Auto) Baso % (Auto) Neut # Lymph # Garza # Eos # Baso # Neutrophils % (Manual) 79 H Band Neutrophils % 2 Lymphocytes % (Manual) 13 L Monocytes % (Manual) 6 Toxic Granulation Present Platelet Estimate Normal Anisocytosis (manual) Slight PT INR APTT pCO2 pO2 HCO3 ABG pH ABG Total CO2 ABG O2 Saturation ABG O2 Content ABG Base Excess ABG Hemoglobin ABG Carboxyhemoglobin POC ABG HHb (Measured) ABG Methemoglobin ABG O2 Capacity Gadiel Test VBG pH VBG pCO2 VBG HCO3 VBG Total CO2 VBG O2 Sat (Calc) VBG Base Excess VBG Potassium A-a O2 Difference Hgb O2 Saturation Glucose Lactate FiO2 Blood Gas Comments Crit Value Called To Crit Value Called By Crit Value Read Back Blood Gas Notified Time Sodium 145 Potassium 6.3 H* Chloride 108 H Carbon Dioxide 16 L Anion Gap 27 H BUN 18 H Creatinine 1.9 H Est GFR ( Amer) 35 Est GFR (Non-Af Amer) 29 POC Glucose (mg/dL) 216 H Random Glucose 203 H Calcium 9.5 Total Bilirubin 1.3 AST 63 H ALT 14 Alkaline Phosphatase 116 Troponin I 0.0660 Total Protein 10.1 H Albumin 5.3 H Globulin 4.8 H Albumin/Globulin Ratio 1.1 Thyroxine (T4) Total T3 TSH 3rd Generation 43.80 H Serum HCG, Qual Venous Blood Potassium Urine Color Urine Clarity Urine pH Ur Specific [place] Urine Protein Urine Glucose (UA) Urine Ketones Urine Blood Urine Nitrate Urine Bilirubin Urine Urobilinogen Ur Leukocyte Esterase Urine RBC (Auto) Urine Microscopic WBC Ur Squamous Epith Cells Amorphous Sediment Urine Bacteria Hyaline Casts Urine Opiates Screen Urine Methadone Screen Ur Barbiturates Screen Ur Phencyclidine Scrn Ur Amphetamines Screen U Benzodiazepines Scrn U Oth Cocaine Metabols U Cannabinoids Screen Alcohol, Quantitative < 10 Influenza Typ A,B (EIA) 04/27/17 04/27/17 04/27/17 08:04 08:10 08:28 WBC RBC Hgb Hct MCV MCH MCHC RDW Plt Count MPV Neut % (Auto) Lymph % (Auto) Garza % (Auto) Eos % (Auto) Baso % (Auto) Neut # Lymph # Garza # Eos # Baso # Neutrophils % (Manual) Band Neutrophils % Lymphocytes % (Manual) Monocytes % (Manual) Toxic Granulation Platelet Estimate Anisocytosis (manual) PT 10.8 INR 1.0 APTT 31.1 pCO2 pO2 HCO3 ABG pH ABG Total CO2 ABG O2 Saturation ABG O2 Content ABG Base Excess ABG Hemoglobin ABG Carboxyhemoglobin POC ABG HHb (Measured) ABG Methemoglobin ABG O2 Capacity Gadiel Test VBG pH VBG pCO2 VBG HCO3 VBG Total CO2 VBG O2 Sat (Calc) VBG Base Excess VBG Potassium A-a O2 Difference Hgb O2 Saturation Glucose Lactate FiO2 Blood Gas Comments Crit Value Called To Mu otero md Crit Value Called By Pn Crit Value Read Back Blood Gas Notified Time 1035 Sodium Potassium Chloride Carbon Dioxide Anion Gap BUN Creatinine Est GFR ( Amer) Est GFR (Non-Af Amer) POC Glucose (mg/dL) Random Glucose Calcium Total Bilirubin AST ALT Alkaline Phosphatase Troponin I Total Protein Albumin Globulin Albumin/Globulin Ratio Thyroxine (T4) Total T3 TSH 3rd Generation Serum HCG, Qual Venous Blood Potassium Urine Color Urine Clarity Urine pH Ur Specific [place] Urine Protein Urine Glucose (UA) Urine Ketones Urine Blood Urine Nitrate Urine Bilirubin Urine Urobilinogen Ur Leukocyte Esterase Urine RBC (Auto) Urine Microscopic WBC Ur Squamous Epith Cells Amorphous Sediment Urine Bacteria Hyaline Casts Urine Opiates Screen Urine Methadone Screen Ur Barbiturates Screen Ur Phencyclidine Scrn Ur Amphetamines Screen U Benzodiazepines Scrn U Oth Cocaine Metabols U Cannabinoids Screen Alcohol, Quantitative Influenza Typ A,B (EIA) Negative for flu a/b 04/27/17 04/27/17 04/27/17 08:28 08:37 09:37 WBC RBC Hgb Hct MCV MCH MCHC RDW Plt Count MPV Neut % (Auto) Lymph % (Auto) Garza % (Auto) Eos % (Auto) Baso % (Auto) Neut # Lymph # Garza # Eos # Baso # Neutrophils % (Manual) Band Neutrophils % Lymphocytes % (Manual) Monocytes % (Manual) Toxic Granulation Platelet Estimate Anisocytosis (manual) PT INR APTT pCO2 66 H pO2 46 L HCO3 17.3 L ABG pH 7.11 L* ABG Total CO2 23.0 ABG O2 Saturation 89.3 L ABG O2 Content 14.9 L ABG Base Excess -9.3 L ABG Hemoglobin 12.7 ABG Carboxyhemoglobin 4.1 H POC ABG HHb (Measured) 10.0 H ABG Methemoglobin 2.1 ABG O2 Capacity 16.7 Gadiel Test Yes VBG pH VBG pCO2 VBG HCO3 VBG Total CO2 VBG O2 Sat (Calc) VBG Base Excess VBG Potassium A-a O2 Difference 585.0 Hgb O2 Saturation 83.8 L Glucose Lactate FiO2 100.0 Blood Gas Comments Rr Crit Value Called To Dr mu otero Crit Value Called By 15 Crit Value Read Back Y Blood Gas Notified Time 846 Sodium Potassium Chloride Carbon Dioxide Anion Gap BUN Creatinine Est GFR ( Amer) Est GFR (Non-Af Amer) POC Glucose (mg/dL) Random Glucose Calcium Total Bilirubin AST ALT Alkaline Phosphatase Troponin I Total Protein Albumin Globulin Albumin/Globulin Ratio Thyroxine (T4) Total T3 TSH 3rd Generation Serum HCG, Qual Negative Venous Blood Potassium Urine Color Yellow Urine Clarity Cloudy Urine pH 5.0 Ur Specific [place] 1.015 Urine Protein 100 Urine Glucose (UA) >=500 Urine Ketones Negative Urine Blood Negative Urine Nitrate Negative Urine Bilirubin Negative Urine Urobilinogen 0.2-1.0 Ur Leukocyte Esterase Neg Urine RBC (Auto) 1 Urine Microscopic WBC 4 Ur Squamous Epith Cells 2 Amorphous Sediment Rare H Urine Bacteria Occ H Hyaline Casts 6-10 H Urine Opiates Screen Urine Methadone Screen Ur Barbiturates Screen Ur Phencyclidine Scrn Ur Amphetamines Screen U Benzodiazepines Scrn U Oth Cocaine Metabols U Cannabinoids Screen Alcohol, Quantitative Influenza Typ A,B (EIA) 04/27/17 04/27/17 04/27/17 09:37 10:27 10:40 WBC RBC Hgb Hct MCV MCH MCHC RDW Plt Count MPV Neut % (Auto) Lymph % (Auto) Garza % (Auto) Eos % (Auto) Baso % (Auto) Neut # Lymph # Garza # Eos # Baso # Neutrophils % (Manual) Band Neutrophils % Lymphocytes % (Manual) Monocytes % (Manual) Toxic Granulation Platelet Estimate Anisocytosis (manual) PT INR APTT pCO2 pO2 73 H HCO3 ABG pH ABG Total CO2 ABG O2 Saturation ABG O2 Content ABG Base Excess ABG Hemoglobin ABG Carboxyhemoglobin POC ABG HHb (Measured) ABG Methemoglobin ABG O2 Capacity Gadiel Test VBG pH 7.22 L VBG pCO2 46 VBG HCO3 17.9 VBG Total CO2 20.2 L VBG O2 Sat (Calc) 96.8 H VBG Base Excess -8.8 L VBG Potassium 4.0 A-a O2 Difference 126.0 Hgb O2 Saturation Glucose 70 Lactate 0.6 L FiO2 36.0 Blood Gas Comments Yes Crit Value Called To Mu otero md Crit Value Called By Pn Crit Value Read Back Yes Blood Gas Notified Time 1035 Sodium 140.0 Potassium 3.7 Chloride 114.0 H Carbon Dioxide Anion Gap BUN Creatinine Est GFR ( Amer) Est GFR (Non-Af Amer) POC Glucose (mg/dL) Random Glucose Calcium Total Bilirubin AST ALT Alkaline Phosphatase Troponin I Total Protein Albumin Globulin Albumin/Globulin Ratio Thyroxine (T4) 5.46 L Total T3 0.635 L TSH 3rd Generation Serum HCG, Qual Venous Blood Potassium 4.0 Urine Color Urine Clarity Urine pH Ur Specific [place] Urine Protein Urine Glucose (UA) Urine Ketones Urine Blood Urine Nitrate Urine Bilirubin Urine Urobilinogen Ur Leukocyte Esterase Urine RBC (Auto) Urine Microscopic WBC Ur Squamous Epith Cells Amorphous Sediment Urine Bacteria Hyaline Casts Urine Opiates Screen Positive H Urine Methadone Screen Negative Ur Barbiturates Screen Negative Ur Phencyclidine Scrn Negative Ur Amphetamines Screen Negative U Benzodiazepines Scrn Negative U Oth Cocaine Metabols Positive H U Cannabinoids Screen Negative Alcohol, Quantitative Influenza Typ A,B (EIA) 04/27/17 04/28/17 04/28/17 18:00 04:25 04:25 WBC 10.7 RBC 3.75 L Hgb 10.3 L D Hct 32.5 L MCV 86.5 D MCH 27.5 MCHC 31.8 L RDW 14.7 H Plt Count 199 D MPV 7.6 Neut % (Auto) 78.3 H Lymph % (Auto) 17.3 L Garza % (Auto) 4.1 Eos % (Auto) 0.1 Baso % (Auto) 0.2 Neut # 8.4 H Lymph # 1.8 Garza # 0.4 Eos # 0.0 Baso # 0.0 Neutrophils % (Manual) Band Neutrophils % Lymphocytes % (Manual) Monocytes % (Manual) Toxic Granulation Platelet Estimate Anisocytosis (manual) PT INR APTT pCO2 pO2 HCO3 ABG pH ABG Total CO2 ABG O2 Saturation ABG O2 Content ABG Base Excess ABG Hemoglobin ABG Carboxyhemoglobin POC ABG HHb (Measured) ABG Methemoglobin ABG O2 Capacity Gadiel Test VBG pH VBG pCO2 VBG HCO3 VBG Total CO2 VBG O2 Sat (Calc) VBG Base Excess VBG Potassium A-a O2 Difference Hgb O2 Saturation Glucose Lactate FiO2 Blood Gas Comments Crit Value Called To Crit Value Called By Crit Value Read Back Blood Gas Notified Time Sodium 141 Potassium 3.5 L Chloride 115 H Carbon Dioxide 23 Anion Gap 7 L BUN 11 Creatinine 1.0 Est GFR ( Amer) > 60 Est GFR (Non-Af Amer) 60 POC Glucose (mg/dL) Random Glucose 67 Calcium 7.9 L Total Bilirubin 0.1 L AST 34 ALT 32 Alkaline Phosphatase 53 Troponin I Total Protein 5.7 L Albumin 2.7 L D Globulin 3.0 Albumin/Globulin Ratio 0.9 L Thyroxine (T4) Total T3 TSH 3rd Generation Serum HCG, Qual Venous Blood Potassium Urine Color Yellow Urine Clarity Cloudy Urine pH 5.0 Ur Specific [place] 1.016 Urine Protein 30 Urine Glucose (UA) 50 Urine Ketones Trace Urine Blood Small Urine Nitrate Negative Urine Bilirubin Negative Urine Urobilinogen 0.2-1.0 Ur Leukocyte Esterase Neg Urine RBC (Auto) 9 H Urine Microscopic WBC 4 Ur Squamous Epith Cells 1 Amorphous Sediment Urine Bacteria Rare Hyaline Casts 0-2 Urine Opiates Screen Urine Methadone Screen Ur Barbiturates Screen Ur Phencyclidine Scrn Ur Amphetamines Screen U Benzodiazepines Scrn U Oth Cocaine Metabols U Cannabinoids Screen Alcohol, Quantitative Influenza Typ A,B (EIA) Assessment & Plan - Assessment and Plan (Free Text) Assessment: 47 y/o F admitted in ICU with septic shock and Pneumonia. Plan: Septic Shock -Code sepsis called on admission -ICU unit -Hypothermia, hypotension, tachycardia, tachypnea, hypoxia on admission -Leukocytosis 18 on admission -s/p vasoppresors on admission -improving clinical status, VS, and leukocytosis resolved this morning -most likely 2/2 developing infiltrate in right lung base ( most likely Pneumonia) -c/w IV fluids -c/w IV antibiotics: Vanco and Cefepime on day #2 -Vanco trough prior to 4th dose -ID consulted, Dr. Kim, recommendations are appreciated Right lung base infiltrate -most likely CAP -c/w IV antibiotics Hypothyroidism uncontrolled TSH: elevated/43 Low T3 and T4 -will increase Levothyroxine dose from 100 mcg to 125 mcg Mild Hypokalemia -POtassium 20 meq PO once H/O Chronic DVT -as per records on Eliquis PO BID -c/w Eliquis DVT prophylaxis -On eliquis - Date & Time Date: 04/28/17 Time: 07:10 <Gutierrez Hyatt K - Last Filed: 04/30/17 11:17> Results - Vital Signs Recent Vital Signs: Last Vital Signs Temp 98.1 F 04/30/17 07:15 Pulse 66 04/30/17 07:15 Resp 20 04/30/17 07:15 BP 131/84 04/30/17 07:15 Pulse Ox 97 04/30/17 07:15 - Labs Result Diagrams: 04/30/17 05:30 04/30/17 05:30 Labs: Laboratory Results - last 24 hr 04/29/17 04/29/17 04/30/17 05:30 05:30 05:30 WBC 10.1 RBC 3.85 Hgb 10.8 L Hct 32.4 L MCV 84.3 MCH 28.0 MCHC 33.2 RDW 14.6 H Plt Count 236 Sodium Potassium Chloride Carbon Dioxide Anion Gap BUN Creatinine Est GFR ( Amer) Est GFR (Non-Af Amer) Random Glucose Calcium Total Bilirubin AST ALT Alkaline Phosphatase Total Protein Albumin Globulin Albumin/Globulin Ratio Hepatitis A IgM Ab Negative Hep Bs Antigen Negative Hep B Core IgM Ab Negative Hepatitis C Antibody Negative HIV 1&2 Antibody Screen Negative 04/30/17 05:30 WBC RBC Hgb Hct MCV MCH MCHC RDW Plt Count Sodium 144 Potassium 3.6 Chloride 113 H Carbon Dioxide 25 Anion Gap 10 BUN 6 L Creatinine 0.7 Est GFR ( Amer) > 60 Est GFR (Non-Af Amer) > 60 Random Glucose 81 Calcium 8.2 L Total Bilirubin 0.3 AST 27 ALT 31 Alkaline Phosphatase 65 Total Protein 6.4 Albumin 3.0 L Globulin 3.3 Albumin/Globulin Ratio 0.9 L Hepatitis A IgM Ab Hep Bs Antigen Hep B Core IgM Ab Hepatitis C Antibody HIV 1&2 Antibody Screen Assessment & Plan - Assessment and Plan (Free Text) Assessment: Patient was personally seen and examined by me in rounds with residents. Available labs and diagnostic data reviewed. Case, Patient's condition and management plan discussed with residents in rounds. Agree with resident's progress note. Plan: As ordered.
[2017-04-28] MEDS: Sodium Chloride 0.9% 1,000 ML IV SCH (08:45)
[2017-04-28] MEDS ORDERED: Potassium Chloride 20 mEq ER Tab PO ONE (09:01)
--- NOTE | 2017-04-28 10:03 | CP.PCM.CON ---
History of Present Illness - History of Present Illness History of Present Illness: 47 year old female, with a past medical history of anxiety, bipolar disorder, and depression, who was brought to the emergency department by EMS accompanied by parents for drug abuse onset today. Patient admits to have used crack, cocaine, and heroin . Patient also found to be septic, hypothermic and with infiltrates on CXR IV antibiotics started ID consult requested - Medical History PMH: Anxiety, Bipolar Disorder, Depression, Hypercholesterolemia, Hyperthyroidism Denies: Diabetes, Hepatitis, HIV, HTN, Seizures, Sexually Transmitted Disease Review of Systems - Review of Systems Systems not reviewed;Unavailable: Altered Mental Status All systems: reviewed and no additional remarkable complaints except - Constitutional Constitutional: As Per HPI - EENT Eyes: absent: As Per HPI, Blind Spots, Blurred Vision, Change in Vision, Decreased Night Vision, Diplopia, Discharge, Dry Eye, Exophthalmos, Floaters, Irritation, Itchy Eyes, Loss of Peripheral Vision, Pain, Photophobia, Requires Corrective Lenses, Sees Flashes, Spots in Vision, Tunnel Vision, Other Visual Disturbances, Loss of Vision, Other Ears: absent: As Per HPI, Decreased Hearing, Ear Discharge, Ear Pain, Tinnitus, Abnormal Hearing, Disequilibrium, Dizziness, Other Nose/Mouth/Throat: absent: As Per HPI, Epistaxis, Nasal Congestion, Nasal Discharge, Nasal Obstruction, Nasal Trauma, Nose Pain, Post Nasal Drip, Sinus Pain, Sinus Pressure, Bleeding Gums, Change in Voice, Dental Pain, Dry Mouth, Dysphagia, Halitosis, Hoarsness, Lip Swelling, Mouth Lesions, Mouth Pain, Odynophagia, Sore Throat, Throat Swelling, Tongue Swelling, Facial Pain, Neck Pain, Neck Mass, Other - Breasts Breasts: absent: As Per HPI, Change in Shape, Mass, Pain, Nipple Discharge, Nipple Inversion, Skin Changes, Swelling, Other - Cardiovascular Cardiovascular: absent: As Per HPI, Acrocyanosis, Chest Pain, Chest Pain at Rest , Chest Pain with Activity, Claudication, Diaphoresis, Dyspnea, Dyspnea on Exertion, Edema, Irregular Heart Rhythm, Pain Radiating to Arm/Neck/Jaw, Leg Edema, Leg Ulcers, Lightheadedness, Orthopnea, Palpitations, Paroxysmal Nocturnal Dyspnea, Pedal Edema, Radiating Pain, Rapid Heart Rate, Slow Heart Rate, Syncope, Other - Respiratory Respiratory: As Per HPI - Gastrointestinal Gastrointestinal: absent: As Per HPI, Abdominal Pain, Belching, Bloating, Change in Bowel Habits, Change in Stool Character, Coffee Ground Emesis, Constipation, Cramping, Diarrhea, Dyspepsia, Dysphagia, Early Satiety, Excessive Flatus, Fecal Incontinence, Heartburn, Hematemesis, Hematochezia, Loose Stools, Melena, Nausea, Odynophagia, Temesmus, Vomiting, Other - Genitourinary Genitourinary: absent: As Per HPI, Change in Urinary Stream, Difficulty Urinating, Dysuria, Flank Pain, Hematuria, Pyuria, Nocturia, Urinary Incontinence, Urinary Frequency, Urinary Hesitance, Urinary Urgency, Voiding Freq/Small Amts, Freq UTI, Hx Renal/Bladder Calculi, Hx /Renal Surgery, Bladder Distension, Other - Reproductive: Female Reproductive:Female: absent: As Per HPI, Amenorrhea, Amenorrhea/ Control, Currently Menstual, Cycle <21 Days, Cycle >35 Days, Cycle Variable, Menses 1-7 Days, Menses >/= 8 Days, Menses Variable, Cycle > 4 Weeks Between, No Menses for 6 Months, Heavy Menses, Light Menses, Normal Menses, Spotting Between Cycles , S/P Hysterectomy, Menopausal, Post Menopausal, Premenarche, Abnormal Vaginal Bleeding, Dysmenorrhea, Dyspareunia, Genital Lesions, Genital Pruritis, Pelvic Pain, Prolapse Symptoms, Sexual Dysfunction, Vaginal Discharge, Vaginal Dryness , Vaginal Odor, Vaginal Pruritis, Other - Menstruation Menstruation: absent: As Per HPI, Amenorrhea, Amenorrhea/ Control, Currently Menstual, Cycle <21 Days, Cycle >35 Days, Cycle Variable, Menses 1-7 Days, Menses >/= 8 Days, Menses Variable, Cycle > 4 Weeks Between, No Menses for 6 Months, Heavy Menses, Light Menses, Normal Menses, Spotting Between Cycles , S/P Hysterectomy, Menopausal, Post Menopausal, Premenarche, Abnormal Vaginal Bleeding, Dysmenorrhea, Other - Musculoskeletal Musculoskeletal: absent: As Per HPI, Abnormal Gait, Arthralgias, Atrophy, Back Pain, Deformity, Joint Swelling, Limited Range of Motion, Loss of Height, Muscle Cramps, Muscle Weakness, Myalgias, Neck Pain, Numbness, Radiating Pain into Limb, Stiffness, Tingling, Other - Integumentary Integumentary: absent: As Per HPI, Acne, Alopecia, Bleeding Lesions, Change in Hair, Change in Nails, Change in Pigmentation, Changing Lesions, Dry Skin, Erythema, Furuncle, Hirsutism, Lesions, New Lesions, Non-Healing Lesions, Photosensitivity, Pruritus, Rash, Skin Pain, Skin Ulcer, Sores, Striae, Swelling , Unusual Bruising, Wounds, Jaundice, Other - Neurological Neurological: As Per HPI - Psychiatric Psychiatric: As Per HPI - Endocrine Endocrine: absent: As Per HPI, Change in Body Appearance, Change in Libido, Cold Intolorance, Deepening of Voice, Excessive Sweating, Fatigue, Flushing, Heat Intolorance, Increase in Ring/Shoe/Hat Size, Palpitations, Polydipsia, Polyphagia, Polyuria, Other - Hematologic/Lymphatic Hematologic: absent: As Per HPI, Easy Bleeding, Easy Bruising, Lymphadenopathy, Other Past Patient History - Infectious Disease Hx of Infectious Diseases: None - Past Medical History & Family History Past Medical History?: Yes - Past Social History Drugs: Cocaine, Opiates (heroin) - CARDIAC Hx Hypercholesterolemia: Yes Hx Hypertension: No Hx Pacemaker: No - PULMONARY Hx Respiratory Disorders: Yes Hx Asthma: Yes Hx Tuberculosis: No - NEUROLOGICAL Hx Seizures: No - HEENT Hx HEENT Problems: Yes (eyeglasses) - RENAL Hx Chronic Kidney Disease: No - ENDOCRINE/METABOLIC Hx Hyperthyroidism: Yes - HEMATOLOGICAL/ONCOLOGICAL Hx Human Immunodeficiency Virus (HIV): No - INTEGUMENTARY Hx Dermatological Problems: No - MUSCULOSKELETAL/RHEUMATOLOGICAL Hx Musculoskeletal Disorders: No Hx Falls: No - GASTROINTESTINAL Hx Gastrointestinal Disorders: No - GENITOURINARY/GYNECOLOGICAL Hx Sexually Transmitted Disorders: No - PSYCHIATRIC Hx Anxiety: Yes Hx Bipolar Disorder: Yes Hx Depression: Yes - SURGICAL HISTORY Hx Surgeries: Yes (c sec x2) Hx Hysterectomy: Yes Other/Comment: iliac vein stent, stent to left exterior iliac vein and left femoral vein thrombus history in chart. - ANESTHESIA Hx Anesthesia: Yes Hx Anesthesia Reactions: No Hx Malignant Hyperthermia: No Has any member of the family had a problem w/ anesthesia?: No Meds Allergies/Adverse Reactions: Allergies Allergy/AdvReac Type Severity Reaction Status Date / Time meperidine [From Demerol] Allergy RASH Verified 01/26/17 10:51 shellfish derived Allergy SWELLING Verified 01/26/17 10:51 - Medications Medications: Current Medications Apixaban (Eliquis) 5 mg PO DAILY [facility] PRN Reason: Protocol Last Admin: 04/28/17 08:43 Dose: 5 mg Aripiprazole (Abilify) 2 mg PO HS [facility] Last Admin: 04/27/17 22:29 Dose: 2 mg Citalopram Hydrobromide (Celexa) 20 mg PO DAILY [facility] Last Admin: 04/28/17 08:42 Dose: 20 mg Divalproex Sodium (Depakote Dr(*Bid*)) 500 mg PO BID [facility] Last Admin: 04/28/17 08:43 Dose: 500 mg Norepinephrine Bitartrate 4 mg (/ Dextrose) 254 mls @ 19.05 mls/hr IV .[id number] PRN; Protocol; 5 MCG/MIN PRN Reason: Titrate By MD Last Titration: 04/28/17 03:30 Dose: 0 mcg/min, 0 mls/hr Sodium Chloride (Sodium Chloride 0.9%) 1,000 mls @ 125 mls/hr IV .Q8H [facility] Stop: 04/28/17 16:16 Last Admin: 04/28/17 08:45 Dose: 125 mls/hr Sodium Chloride (Sodium Chloride 0.9%) 1,000 mls @ 125 mls/hr IV .Q8H [facility] Stop: 04/28/17 17:07 Cefepime HCl 1 gm/ Sodium (Chloride) 100 mls @ 100 mls/hr IVPB Q12 [facility] PRN Reason: Protocol Last Admin: 04/28/17 08:43 Dose: 100 mls/hr Vancomycin HCl 1 gm/ Sodium (Chloride) 250 mls @ 250 mls/hr IVPB Q12@0200,1400 [facility] PRN Reason: Protocol Last Admin: 04/28/17 02:30 Dose: 250 mls/hr Levothyroxine Sodium (Synthroid) 125 mcg PO DAILY@0630 [facility] Mirtazapine (Remeron) 15 mg PO HS [facility] Last Admin: 04/27/17 22:29 Dose: 15 mg Physical Exam - Constitutional Appears: No Acute Distress, Confused, Chronically Ill - Head Exam Head Exam: NORMOCEPHALIC - Eye Exam Eye Exam: absent: Scleral icterus - ENT Exam ENT Exam: Mucous Membranes Dry - Neck Exam Neck exam: Negative for: Lymphadenopathy - Respiratory Exam Respiratory Exam: Decreased Breath Sounds, Rhonchi - Cardiovascular Exam Cardiovascular Exam: REGULAR RHYTHM, +S1, +S2 - GI/Abdominal Exam GI & Abdominal Exam: Diminished Bowel Sounds, Distended, Soft. absent: Rebound , Rigid, Tenderness - Rectal Exam Rectal Exam: Deferred - Exam Exam: NORMAL INSPECTION - Extremities Exam Extremities exam: Positive for: pedal pulses present. Negative for: calf tenderness, pedal edema, tenderness - Back Exam Back exam: absent: CVA tenderness (L), CVA tenderness (R) - Neurological Exam Neurological exam: Alert, CN II-XII Intact, Oriented x3, Reflexes Normal - Psychiatric Exam Psychiatric exam: Depressed - Skin Skin Exam: Dry Results - Vital Signs Recent Vital Signs: Last Vital Signs Temp 98.3 F 04/28/17 08:00 Pulse 90 04/28/17 08:00 Resp 11 L 04/28/17 08:00 BP 111/77 04/28/17 08:00 Pulse Ox 100 04/28/17 08:00 - Labs Result Diagrams: 04/28/17 04:25 04/28/17 04:25 Labs: Laboratory Results - last 24 hr 04/27/17 04/27/17 04/27/17 07:32 08:00 08:04 WBC RBC Hgb Hct MCV MCH MCHC RDW Plt Count MPV Neut % (Auto) Lymph % (Auto) [place] % (Auto) Eos % (Auto) Baso % (Auto) Neut # Lymph # [place] # Eos # Baso # Neutrophils % (Manual) 79 H Band Neutrophils % 2 Lymphocytes % (Manual) 13 L Monocytes % (Manual) 6 Toxic Granulation Present Platelet Estimate Normal Anisocytosis (manual) Slight pO2 VBG pH VBG pCO2 VBG HCO3 VBG Total CO2 VBG O2 Sat (Calc) VBG Base Excess VBG Potassium A-a O2 Difference Sodium Chloride Glucose Lactate FiO2 Blood Gas Comments Crit Value Called To Dimple otero md Crit Value Called By Pn Crit Value Read Back Blood Gas Notified Time 1035 Potassium Carbon Dioxide Anion Gap BUN Creatinine Est GFR ( Amer) Est GFR (Non-Af Amer) POC Glucose (mg/dL) 216 H Random Glucose Calcium Total Bilirubin AST ALT Alkaline Phosphatase Total Protein Albumin Globulin Albumin/Globulin Ratio Thyroxine (T4) Total T3 Venous Blood Potassium Urine Color Urine Clarity Urine pH Ur Specific [place] Urine Protein Urine Glucose (UA) Urine Ketones Urine Blood Urine Nitrate Urine Bilirubin Urine Urobilinogen Ur Leukocyte Esterase Urine RBC (Auto) Urine Microscopic WBC Ur Squamous Epith Cells Amorphous Sediment Urine Bacteria Hyaline Casts Urine Opiates Screen U Oth Cocaine Metabols 04/27/17 04/27/17 04/27/17 09:37 09:37 10:27 WBC RBC Hgb Hct MCV MCH MCHC RDW Plt Count MPV Neut % (Auto) Lymph % (Auto) [place] % (Auto) Eos % (Auto) Baso % (Auto) Neut # Lymph # [place] # Eos # Baso # Neutrophils % (Manual) Band Neutrophils % Lymphocytes % (Manual) Monocytes % (Manual) Toxic Granulation Platelet Estimate Anisocytosis (manual) pO2 VBG pH VBG pCO2 VBG HCO3 VBG Total CO2 VBG O2 Sat (Calc) VBG Base Excess VBG Potassium A-a O2 Difference Sodium Chloride Glucose Lactate FiO2 Blood Gas Comments Crit Value Called To Crit Value Called By Crit Value Read Back Blood Gas Notified Time Potassium 3.7 Carbon Dioxide Anion Gap BUN Creatinine Est GFR ( Amer) Est GFR (Non-Af Amer) POC Glucose (mg/dL) Random Glucose Calcium Total Bilirubin AST ALT Alkaline Phosphatase Total Protein Albumin Globulin Albumin/Globulin Ratio Thyroxine (T4) 5.46 L Total T3 0.635 L Venous Blood Potassium Urine Color Yellow Urine Clarity Cloudy Urine pH 5.0 Ur Specific [place] 1.015 Urine Protein 100 Urine Glucose (UA) >=500 Urine Ketones Negative Urine Blood Negative Urine Nitrate Negative Urine Bilirubin Negative Urine Urobilinogen 0.2-1.0 Ur Leukocyte Esterase Neg Urine RBC (Auto) 1 Urine Microscopic WBC 4 Ur Squamous Epith Cells 2 Amorphous Sediment Rare H Urine Bacteria Occ H Hyaline Casts 6-10 H Urine Opiates Screen Positive H U Oth Cocaine Metabols Positive H 04/27/17 04/27/17 04/28/17 10:40 18:00 04:25 WBC 10.7 RBC 3.75 L Hgb 10.3 L D Hct 32.5 L MCV 86.5 D MCH 27.5 MCHC 31.8 L RDW 14.7 H Plt Count 199 D MPV 7.6 Neut % (Auto) 78.3 H Lymph % (Auto) 17.3 L [place] % (Auto) 4.1 Eos % (Auto) 0.1 Baso % (Auto) 0.2 Neut # 8.4 H Lymph # 1.8 [place] # 0.4 Eos # 0.0 Baso # 0.0 Neutrophils % (Manual) Band Neutrophils % Lymphocytes % (Manual) Monocytes % (Manual) Toxic Granulation Platelet Estimate Anisocytosis (manual) pO2 73 H VBG pH 7.22 L VBG pCO2 46 VBG HCO3 17.9 VBG Total CO2 20.2 L VBG O2 Sat (Calc) 96.8 H VBG Base Excess -8.8 L VBG Potassium 4.0 A-a O2 Difference 126.0 Sodium 140.0 Chloride 114.0 H Glucose 70 Lactate 0.6 L FiO2 36.0 Blood Gas Comments Yes Crit Value Called To Dimple otero md Crit Value Called By Pn Crit Value Read Back Yes Blood Gas Notified Time 1035 Potassium Carbon Dioxide Anion Gap BUN Creatinine Est GFR ( Amer) Est GFR (Non-Af Amer) POC Glucose (mg/dL) Random Glucose Calcium Total Bilirubin AST ALT Alkaline Phosphatase Total Protein Albumin Globulin Albumin/Globulin Ratio Thyroxine (T4) Total T3 Venous Blood Potassium 4.0 Urine Color Yellow Urine Clarity Cloudy Urine pH 5.0 Ur Specific [place] 1.016 Urine Protein 30 Urine Glucose (UA) 50 Urine Ketones Trace Urine Blood Small Urine Nitrate Negative Urine Bilirubin Negative Urine Urobilinogen 0.2-1.0 Ur Leukocyte Esterase Neg Urine RBC (Auto) 9 H Urine Microscopic WBC 4 Ur Squamous Epith Cells 1 Amorphous Sediment Urine Bacteria Rare Hyaline Casts 0-2 Urine Opiates Screen U Oth Cocaine Metabols 04/28/17 04:25 WBC RBC Hgb Hct MCV MCH MCHC RDW Plt Count MPV Neut % (Auto) Lymph % (Auto) [place] % (Auto) Eos % (Auto) Baso % (Auto) Neut # Lymph # [place] # Eos # Baso # Neutrophils % (Manual) Band Neutrophils % Lymphocytes % (Manual) Monocytes % (Manual) Toxic Granulation Platelet Estimate Anisocytosis (manual) pO2 VBG pH VBG pCO2 VBG HCO3 VBG Total CO2 VBG O2 Sat (Calc) VBG Base Excess VBG Potassium A-a O2 Difference Sodium 141 Chloride 115 H Glucose Lactate FiO2 Blood Gas Comments Crit Value Called To Crit Value Called By Crit Value Read Back Blood Gas Notified Time Potassium 3.5 L Carbon Dioxide 23 Anion Gap 7 L BUN 11 Creatinine 1.0 Est GFR ( Amer) > 60 Est GFR (Non-Af Amer) 60 POC Glucose (mg/dL) Random Glucose 67 Calcium 7.9 L Total Bilirubin 0.1 L AST 34 ALT 32 Alkaline Phosphatase 53 Total Protein 5.7 L Albumin 2.7 L D Globulin 3.0 Albumin/Globulin Ratio 0.9 L Thyroxine (T4) Total T3 Venous Blood Potassium Urine Color Urine Clarity Urine pH Ur Specific [place] Urine Protein Urine Glucose (UA) Urine Ketones Urine Blood Urine Nitrate Urine Bilirubin Urine Urobilinogen Ur Leukocyte Esterase Urine RBC (Auto) Urine Microscopic WBC Ur Squamous Epith Cells Amorphous Sediment Urine Bacteria Hyaline Casts Urine Opiates Screen U Oth Cocaine Metabols Assessment & Plan (1) CAP (community acquired pneumonia) Status: Acute (2) Polysubstance abuse Status: Acute (3) Septic shock Status: Acute - Assessment and Plan (Free Text) Assessment: cont iv rx for now de-escalation based on culture results when available
--- NOTE | 2017-04-28 10:47 | CP.CCUPN ---
CCU Subjective - Physician Review Events Since Last Encounter (Free Text): 04/28/17 10:47 The patient was Seen/interviewed and examined by me at the bedside with ICU team , Medical records reviewed and Management issues were discussed and formulated with the house staff. 47 Years old active smoker Female with PMHx of Hypercholesterolemia, Hyperthyroidism, Anxiety, Bipolar Disorder, hysterectomy, Depression, poly substance abuse and PVD s/p B/L illiac stents, on Eliquis Patient also with H/O Chronic deep vein thrombosis (DVT) of left lower extremity S/p IVC placement and LLE thrombectomy recently changed from Coumadin to Eliquis Who was brought to the emergency department yesterday by EMS accompanied by parents for drug abuse and altered mental status. Patient also admits to have used crack, cocaine, and heroin. In the Emergency department, she was hypothermic to 88F, Hypotensive and CXR with possible RLL infiltrate Code sepsis was called. Patient started on IV antibiotics, IV Fluids Central line place and vasopressors with Levophed initiated for persistant hypotension Initial ABG with severe respiratory and metabolic acidosis, hypoxemia % NRM Patient admitted to ICU for further management of Septic shock This morning she feels well and is hemodynamically improved Clinically improving, off Levophed since 3:30 this morning No Vasopressors Pt AAO x3. Alert, comfortable, NAD Denies any chest pain, SOB or Palpitations Afebrile, NSR on the monitor Last 24H I&O 4338/1000 This morning labs revealed Leucocytosis trending down 18.5-->10.7, improved renal function BUN/Cr 11/1.0 Repeat ABG on 4L NC 7.22/48/73/140/96.8 K 4, Lactate of 1.9 Patient with PVD s/p B/L illiac stents and Chronic deep vein thrombosis (DVT) of left lower extremity S/p IVC placement and LLE thrombectomy On Eliquis CCU Objective - Vital Signs / Intake & Output Vital Signs (Last 4 hours): Vital Signs Temp Pulse Resp BP Pulse Ox 04/28/17 08:00 98.3 F 90 11 L 111/77 100 Intake and Output (Last 8hrs): Intake & Output 04/27/17 04/28/17 04/28/17 22:59 06:59 14:59 Intake Total 2764 1574 100 Output Total 400 600 500 Balance 2364 974 -400 Weight 140 lb Intake: IV 2154 874 Intake, Piggyback 350 600 100 Oral 260 100 Output: Urine 400 600 500 Urine, Voided 400 600 500 Other: # Voids Urine, Voided 2 1 - Physical Exam Head: Positive for: Atraumatic, Normocephalic. Negative for: Tenderness, Contusion, Swelling, Ecchymosis Pupils: Positive for: PERRL, Sluggish. Negative for: Non-Reactive, Pinpoint Extroacular Muscles: Positive for: EOMI Conjunctiva: Positive for: Normal. Negative for: Injected, Icteric Ears: Positive for: Normal Mouth: Positive for: Moist Mucous Membranes Nose (Internal): Positive for: Normal Inspection, No Active Bleeding Neck: Positive for: Normal Range of Motion, Trachea Midline. Negative for: Meningeal Signs, MIDLINE TENDERNESS, Paraspinal Tenderness, JVD, Lymphadenopathy , Bruit, Other Respiratory/Chest: Positive for: Good Air Exchange, Decreased Breath Sounds, Rhonchi, Tachypneic. Negative for: Respiratory Distress, Accessory Muscle Use, Wheezes, Rales, Retracting Cardiovascular: Positive for: Regular Rate and Rhythm, Normal S1, S2, Peripheal Pulses Present. Negative for: Murmurs, Irregular Rhythm, Tachycardic, Bradycardic Abdomen: Positive for: Normal Bowel Sounds. Negative for: Tenderness, Distention, Peritoneal Signs Back: Positive for: Normal Inspection. Negative for: CVA Tenderness Upper Extremity: Positive for: Normal Inspection, Normal ROM, NORMAL PULSES, Capillary Refill < 2s. Negative for: Cyanosis, Edema, Tenderness, Swelling Lower Extremity: Positive for: Normal Inspection, Capillary Refill < 2 s. Negative for: CALF TENDERNESS Neurological: Positive for: GCS=15, CN II-XII Intact, Speech Normal, Motor Func Grossly Intact, Normal Sensory Function Psychiatric: Positive for: Alert, Oriented x 3 - Medications Active Medications: Active Medications Generic Name Dose Route Start Last Admin Trade Name Freq PRN Reason Stop Dose Admin Apixaban 5 mg 04/28/17 09:00 04/28/17 08:43 Eliquis PO 5 mg DAILY ANGIE Administration Protocol Aripiprazole 2 mg 04/27/17 22:00 04/27/17 22:29 Abilify PO 2 mg HS ANGIE Administration Citalopram Hydrobromide 20 mg 04/28/17 09:00 04/28/17 08:42 Celexa PO 20 mg DAILY ANGIE Administration Divalproex Sodium 500 mg 04/27/17 18:45 04/28/17 08:43 Depmarylu Montejo(*Bid*) PO 500 mg BID ANGIE Administration Norepinephrine Bitartrate 4 mg 254 mls @ 19.05 mls/hr 04/27/17 10:39 03:30 / Dextrose IV 0 mcg/min .[id number] PRN 0 mls/hr Titrate By MD Titration Protocol 5 MCG/MIN Sodium Chloride 1,000 mls @ 125 mls/hr 04/27/17 16:30 04/28/17 08:45 Sodium Chloride 0.9% IV 04/28/17 16:16 125 mls/hr .Q8H ANGIE Administration Sodium Chloride 1,000 mls @ 125 mls/hr 04/27/17 17:15 Sodium Chloride 0.9% IV 04/28/17 17:07 .Q8H ANGIE Cefepime HCl 1 gm/ Sodium 100 mls @ 100 mls/hr 04/27/17 21:00 04/28/17 08:43 Chloride IVPB 100 mls/hr Q12 ANGIE Administration Protocol Vancomycin HCl 1 gm/ Sodium 250 mls @ 250 mls/hr 04/28/17 02:00 04/28/17 02: 30 Chloride IVPB 250 mls/hr Q12@0200,1400 ANGIE Administration Protocol Levothyroxine Sodium 125 mcg 04/28/17 08:45 Synthroid PO DAILY@0630 ANGIE Mirtazapine 15 mg 04/27/17 22:00 04/27/17 22:29 Remeron PO 15 mg HS ANGIE Administration - Patient Studies Lab Studies: Microbiology Studies 04/27/17 08:28 Blood Culture - Preliminary Blood NO GROWTH AFTER 24 HOURS 04/27/17 08:21 Blood Culture - Preliminary Blood NO GROWTH AFTER 24 HOURS Lab Studies 04/28/17 04/28/17 04/27/17 Range/Units 04:25 04:25 18:00 WBC 10.7 (4.8-10.8) K/uL RBC 3.75 L (3.80-5.20) Mil/uL Hgb 10.3 L D (12.0-16.0) g/dL Hct 32.5 L (34.0-47.0) % MCV 86.5 D (81.0-99.0) fl MCH 27.5 (27.0-31.0) pg MCHC 31.8 L (33.0-37.0) g/dL RDW 14.7 H (11.5-14.5) % Plt Count 199 D (130-400) K/uL MPV 7.6 (7.2-11.7) fl Neut % (Auto) 78.3 H (50.0-75.0) % Lymph % (Auto) 17.3 L (20.0-40.0) % [place] % (Auto) 4.1 (0.0-10.0) % Eos % (Auto) 0.1 (0.0-4.0) % Baso % (Auto) 0.2 (0.0-2.0) % Neut # 8.4 H (1.8-7.0) K/uL Lymph # 1.8 (1.0-4.3) K/uL [place] # 0.4 (0.0-0.8) K/uL Eos # 0.0 (0.0-0.7) K/uL Baso # 0.0 (0.0-0.2) K/uL Neutrophils % (Manual) (42-75) % Band Neutrophils % (0-2) % Lymphocytes % (Manual) (20-50) % Monocytes % (Manual) (0-10) % Toxic Granulation Platelet Estimate (NORMAL) Anisocytosis (manual) pO2 (30-55) mm/Hg VBG pH (7.32-7.43) VBG pCO2 (40-60) mmHg VBG HCO3 mmol/L VBG Total CO2 (22-28) mmol/L VBG O2 Sat (Calc) (40-65) % VBG Base Excess (0.0-2.0) mmol/L VBG Potassium (3.6-5.2) mmol/L A-a O2 Difference mm/Hg Sodium 141 (132-148) mmol/L Chloride 115 H (98-107) mmol/L Glucose (65-105) mg/dL Lactate (0.7-2.1) mmol/L FiO2 % Blood Gas Comments Crit Value Called To Crit Value Called By Crit Value Read Back Blood Gas Notified Time Potassium 3.5 L (3.6-5.0) MMOL/L Carbon Dioxide 23 (22-30) mmol/L Anion Gap 7 L (10-20) BUN 11 (7-17) mg/dl Creatinine 1.0 (0.7-1.2) mg/dl Est GFR ( Amer) > 60 Est GFR (Non-Af Amer) 60 POC Glucose (mg/dL) (65-110) mg/dL Random Glucose 67 (65-105) mg/dL Calcium 7.9 L (8.4-10.2) mg/dL Total Bilirubin 0.1 L (0.2-1.3) mg/dl AST 34 (14-36) U/L ALT 32 (9-52) U/L Alkaline Phosphatase 53 (38-126) U/L Total Protein 5.7 L (6.3-8.2) G/DL Albumin 2.7 L D (3.5-5.0) g/dL Globulin 3.0 (2.2-3.9) gm/dL Albumin/Globulin Ratio 0.9 L (1.0-2.1) Thyroxine (T4) (5.5-11.0) ug/dl Total T3 (1.49-2.60) nmol/L Venous Blood Potassium (3.6-5.2) mmol/L Urine Color Yellow (YELLOW) Urine Clarity Cloudy (Clear) Urine pH 5.0 (5.0-8.0) Ur Specific [place] 1.016 (1.003-1.030) Urine Protein 30 (NEGATIVE) mg/dL Urine Glucose (UA) 50 (Normal) mg/dL Urine Ketones Trace (NEGATIVE) mg/dL Urine Blood Small (NEGATIVE) Urine Nitrate Negative (NEGATIVE) Urine Bilirubin Negative (NEGATIVE) Urine Urobilinogen 0.2-1.0 (0.2-1.0) mg/dL Ur Leukocyte Esterase Neg (Negative) Jihan/uL Urine RBC (Auto) 9 H (0-3) /hpf Urine Microscopic WBC 4 (0-5) /hpf Ur Squamous Epith Cells 1 (0-5) /hpf Urine Bacteria Rare (<OCC) Hyaline Casts 0-2 (0-2) /hpf 04/27/17 04/27/17 04/27/17 Range/Units 10:40 10:27 08:04 WBC (4.8-10.8) K/uL RBC (3.80-5.20) Mil/uL Hgb (12.0-16.0) g/dL Hct (34.0-47.0) % MCV (81.0-99.0) fl MCH (27.0-31.0) pg MCHC (33.0-37.0) g/dL RDW (11.5-14.5) % Plt Count (130-400) K/uL MPV (7.2-11.7) fl Neut % (Auto) (50.0-75.0) % Lymph % (Auto) (20.0-40.0) % [place] % (Auto) (0.0-10.0) % Eos % (Auto) (0.0-4.0) % Baso % (Auto) (0.0-2.0) % Neut # (1.8-7.0) K/uL Lymph # (1.0-4.3) K/uL [place] # (0.0-0.8) K/uL Eos # (0.0-0.7) K/uL Baso # (0.0-0.2) K/uL Neutrophils % (Manual) (42-75) % Band Neutrophils % (0-2) % Lymphocytes % (Manual) (20-50) % Monocytes % (Manual) (0-10) % Toxic Granulation Platelet Estimate (NORMAL) Anisocytosis (manual) pO2 73 H (30-55) mm/Hg VBG pH 7.22 L (7.32-7.43) VBG pCO2 46 (40-60) mmHg VBG HCO3 17.9 mmol/L VBG Total CO2 20.2 L (22-28) mmol/L VBG O2 Sat (Calc) 96.8 H (40-65) % VBG Base Excess -8.8 L (0.0-2.0) mmol/L VBG Potassium 4.0 (3.6-5.2) mmol/L A-a O2 Difference 126.0 mm/Hg Sodium 140.0 (132-148) mmol/L Chloride 114.0 H (98-107) mmol/L Glucose 70 (65-105) mg/dL Lactate 0.6 L (0.7-2.1) mmol/L FiO2 36.0 % Blood Gas Comments Yes Crit Value Called To Dimple otero md Crit Value Called By Pn Crit Value Read Back Yes Blood Gas Notified Time 1035 Potassium 3.7 (3.6-5.0) MMOL/L Carbon Dioxide (22-30) mmol/L Anion Gap (10-20) BUN (7-17) mg/dl Creatinine (0.7-1.2) mg/dl Est GFR ( Amer) Est GFR (Non-Af Amer) POC Glucose (mg/dL) (65-110) mg/dL Random Glucose (65-105) mg/dL Calcium (8.4-10.2) mg/dL Total Bilirubin (0.2-1.3) mg/dl AST (14-36) U/L ALT (9-52) U/L Alkaline Phosphatase (38-126) U/L Total Protein (6.3-8.2) G/DL Albumin (3.5-5.0) g/dL Globulin (2.2-3.9) gm/dL Albumin/Globulin Ratio (1.0-2.1) Thyroxine (T4) 5.46 L (5.5-11.0) ug/dl Total T3 0.635 L (1.49-2.60) nmol/L Venous Blood Potassium 4.0 (3.6-5.2) mmol/L Urine Color (YELLOW) Urine Clarity (Clear) Urine pH (5.0-8.0) Ur Specific [place] (1.003-1.030) Urine Protein (NEGATIVE) mg/dL Urine Glucose (UA) (Normal) mg/dL Urine Ketones (NEGATIVE) mg/dL Urine Blood (NEGATIVE) Urine Nitrate (NEGATIVE) Urine Bilirubin (NEGATIVE) Urine Urobilinogen (0.2-1.0) mg/dL Ur Leukocyte Esterase (Negative) Jihan/uL Urine RBC (Auto) (0-3) /hpf Urine Microscopic WBC (0-5) /hpf Ur Squamous Epith Cells (0-5) /hpf Urine Bacteria (<OCC) Hyaline Casts (0-2) /hpf 04/27/17 04/27/17 Range/Units 08:00 07:32 WBC (4.8-10.8) K/uL RBC (3.80-5.20) Mil/uL Hgb (12.0-16.0) g/dL Hct (34.0-47.0) % MCV (81.0-99.0) fl MCH (27.0-31.0) pg MCHC (33.0-37.0) g/dL RDW (11.5-14.5) % Plt Count (130-400) K/uL MPV (7.2-11.7) fl Neut % (Auto) (50.0-75.0) % Lymph % (Auto) (20.0-40.0) % [place] % (Auto) (0.0-10.0) % Eos % (Auto) (0.0-4.0) % Baso % (Auto) (0.0-2.0) % Neut # (1.8-7.0) K/uL Lymph # (1.0-4.3) K/uL [place] # (0.0-0.8) K/uL Eos # (0.0-0.7) K/uL Baso # (0.0-0.2) K/uL Neutrophils % (Manual) 79 H (42-75) % Band Neutrophils % 2 (0-2) % Lymphocytes % (Manual) 13 L (20-50) % Monocytes % (Manual) 6 (0-10) % Toxic Granulation Present Platelet Estimate Normal (NORMAL) Anisocytosis (manual) Slight pO2 (30-55) mm/Hg VBG pH (7.32-7.43) VBG pCO2 (40-60) mmHg VBG HCO3 mmol/L VBG Total CO2 (22-28) mmol/L VBG O2 Sat (Calc) (40-65) % VBG Base Excess (0.0-2.0) mmol/L VBG Potassium (3.6-5.2) mmol/L A-a O2 Difference mm/Hg Sodium (132-148) mmol/L Chloride (98-107) mmol/L Glucose (65-105) mg/dL Lactate (0.7-2.1) mmol/L FiO2 % Blood Gas Comments Crit Value Called To Crit Value Called By Crit Value Read Back Blood Gas Notified Time Potassium (3.6-5.0) MMOL/L Carbon Dioxide (22-30) mmol/L Anion Gap (10-20) BUN (7-17) mg/dl Creatinine (0.7-1.2) mg/dl Est GFR ( Amer) Est GFR (Non-Af Amer) POC Glucose (mg/dL) 216 H (65-110) mg/dL Random Glucose (65-105) mg/dL Calcium (8.4-10.2) mg/dL Total Bilirubin (0.2-1.3) mg/dl AST (14-36) U/L ALT (9-52) U/L Alkaline Phosphatase (38-126) U/L Total Protein (6.3-8.2) G/DL Albumin (3.5-5.0) g/dL Globulin (2.2-3.9) gm/dL Albumin/Globulin Ratio (1.0-2.1) Thyroxine (T4) (5.5-11.0) ug/dl Total T3 (1.49-2.60) nmol/L Venous Blood Potassium (3.6-5.2) mmol/L Urine Color (YELLOW) Urine Clarity (Clear) Urine pH (5.0-8.0) Ur Specific [place] (1.003-1.030) Urine Protein (NEGATIVE) mg/dL Urine Glucose (UA) (Normal) mg/dL Urine Ketones (NEGATIVE) mg/dL Urine Blood (NEGATIVE) Urine Nitrate (NEGATIVE) Urine Bilirubin (NEGATIVE) Urine Urobilinogen (0.2-1.0) mg/dL Ur Leukocyte Esterase (Negative) Jihan/uL Urine RBC (Auto) (0-3) /hpf Urine Microscopic WBC (0-5) /hpf Ur Squamous Epith Cells (0-5) /hpf Urine Bacteria (<OCC) Hyaline Casts (0-2) /hpf Laboratory Results - last 24 hr 04/27/17 04/27/17 04/27/17 07:32 08:00 08:04 WBC RBC Hgb Hct MCV MCH MCHC RDW Plt Count MPV Neut % (Auto) Lymph % (Auto) [place] % (Auto) Eos % (Auto) Baso % (Auto) Neut # Lymph # [place] # Eos # Baso # Neutrophils % (Manual) 79 H Band Neutrophils % 2 Lymphocytes % (Manual) 13 L Monocytes % (Manual) 6 Toxic Granulation Present Platelet Estimate Normal Anisocytosis (manual) Slight pO2 VBG pH VBG pCO2 VBG HCO3 VBG Total CO2 VBG O2 Sat (Calc) VBG Base Excess VBG Potassium A-a O2 Difference Sodium Chloride Glucose Lactate FiO2 Blood Gas Comments Crit Value Called To Crit Value Called By Crit Value Read Back Blood Gas Notified Time Potassium Carbon Dioxide Anion Gap BUN Creatinine Est GFR ( Amer) Est GFR (Non-Af Amer) POC Glucose (mg/dL) 216 H Random Glucose Calcium Total Bilirubin AST ALT Alkaline Phosphatase Total Protein Albumin Globulin Albumin/Globulin Ratio Thyroxine (T4) Total T3 Venous Blood Potassium Urine Color Urine Clarity Urine pH Ur Specific [place] Urine Protein Urine Glucose (UA) Urine Ketones Urine Blood Urine Nitrate Urine Bilirubin Urine Urobilinogen Ur Leukocyte Esterase Urine RBC (Auto) Urine Microscopic WBC Ur Squamous Epith Cells Urine Bacteria Hyaline Casts 04/27/17 04/27/17 04/27/17 10:27 10:40 18:00 WBC RBC Hgb Hct MCV MCH MCHC RDW Plt Count MPV Neut % (Auto) Lymph % (Auto) [place] % (Auto) Eos % (Auto) Baso % (Auto) Neut # Lymph # [place] # Eos # Baso # Neutrophils % (Manual) Band Neutrophils % Lymphocytes % (Manual) Monocytes % (Manual) Toxic Granulation Platelet Estimate Anisocytosis (manual) pO2 73 H VBG pH 7.22 L VBG pCO2 46 VBG HCO3 17.9 VBG Total CO2 20.2 L VBG O2 Sat (Calc) 96.8 H VBG Base Excess -8.8 L VBG Potassium 4.0 A-a O2 Difference 126.0 Sodium 140.0 Chloride 114.0 H Glucose 70 Lactate 0.6 L FiO2 36.0 Blood Gas Comments Yes Crit Value Called To Dimple otero md Crit Value Called By Pn Crit Value Read Back Yes Blood Gas Notified Time 1035 Potassium 3.7 Carbon Dioxide Anion Gap BUN Creatinine Est GFR ( Amer) Est GFR (Non-Af Amer) POC Glucose (mg/dL) Random Glucose Calcium Total Bilirubin AST ALT Alkaline Phosphatase Total Protein Albumin Globulin Albumin/Globulin Ratio Thyroxine (T4) 5.46 L Total T3 0.635 L Venous Blood Potassium 4.0 Urine Color Yellow Urine Clarity Cloudy Urine pH 5.0 Ur Specific [place] 1.016 Urine Protein 30 Urine Glucose (UA) 50 Urine Ketones Trace Urine Blood Small Urine Nitrate Negative Urine Bilirubin Negative Urine Urobilinogen 0.2-1.0 Ur Leukocyte Esterase Neg Urine RBC (Auto) 9 H Urine Microscopic WBC 4 Ur Squamous Epith Cells 1 Urine Bacteria Rare Hyaline Casts 0-2 04/28/17 04/28/17 04:25 04:25 WBC 10.7 RBC 3.75 L Hgb 10.3 L D Hct 32.5 L MCV 86.5 D MCH 27.5 MCHC 31.8 L RDW 14.7 H Plt Count 199 D MPV 7.6 Neut % (Auto) 78.3 H Lymph % (Auto) 17.3 L [place] % (Auto) 4.1 Eos % (Auto) 0.1 Baso % (Auto) 0.2 Neut # 8.4 H Lymph # 1.8 [place] # 0.4 Eos # 0.0 Baso # 0.0 Neutrophils % (Manual) Band Neutrophils % Lymphocytes % (Manual) Monocytes % (Manual) Toxic Granulation Platelet Estimate Anisocytosis (manual) pO2 VBG pH VBG pCO2 VBG HCO3 VBG Total CO2 VBG O2 Sat (Calc) VBG Base Excess VBG Potassium A-a O2 Difference Sodium 141 Chloride 115 H Glucose Lactate FiO2 Blood Gas Comments Crit Value Called To Crit Value Called By Crit Value Read Back Blood Gas Notified Time Potassium 3.5 L Carbon Dioxide 23 Anion Gap 7 L BUN 11 Creatinine 1.0 Est GFR ( Amer) > 60 Est GFR (Non-Af Amer) 60 POC Glucose (mg/dL) Random Glucose 67 Calcium 7.9 L Total Bilirubin 0.1 L AST 34 ALT 32 Alkaline Phosphatase 53 Total Protein 5.7 L Albumin 2.7 L D Globulin 3.0 Albumin/Globulin Ratio 0.9 L Thyroxine (T4) Total T3 Venous Blood Potassium Urine Color Urine Clarity Urine pH Ur Specific [place] Urine Protein Urine Glucose (UA) Urine Ketones Urine Blood Urine Nitrate Urine Bilirubin Urine Urobilinogen Ur Leukocyte Esterase Urine RBC (Auto) Urine Microscopic WBC Ur Squamous Epith Cells Urine Bacteria Hyaline Casts Fingerstick Blood Sugar Results: 216 Critical Care Progress Note - Nutrition Nutrition: Nutrition Category Date Time Status Heart Healthy Diet [DIET] Diets 04/27/17 Dinner Active Assessment/Plan (1) Septic shock Current Visit: Yes Status: Acute Comment: Clinically, hemodynamically improved Continue IV Vancomycin and Maxipime Off levophed for BP support Maintain MAP 65-75 (2) CAP (community acquired pneumonia) Current Visit: Yes Status: Acute Comment: Continue IV Vancomycin and Maxipime Follow up cultures (3) Anxiety Current Visit: No Status: Acute Comment: Pt with past medical history of anxiety, bipolar disorder resumed home medications (4) Chronic deep vein thrombosis (DVT) of left lower extremity Current Visit: No Status: Acute Comment: Patient with H/O Chronic deep vein thrombosis (DVT) of left lower extremity S/p IVC placement and LLE thrombectomy recently changed from Coumadin to Eliquis Eliquis resumed (5) Polysubstance abuse Current Visit: Yes Status: Acute (6) PVD (peripheral vascular disease) Current Visit: Yes Status: Acute Comment: PVD s/p B/L illiac stents, on Eliquis (7) Tobacco dependence Current Visit: Yes Status: Acute Comment: Cigarette smoking cessation counseling
[2017-04-28] MEDS ORDERED: Sodium Chloride 0.9% 1,000 ML IV SCH (11:35)
[2017-04-28 12:49] LABS: HEMATOCRIT 31.8 % (34.0-47.0); MEAN CORPUSCULAR HEMOGLOBIN 27.7 pg (27.0-31.0); MEAN CORPUSCULAR HGB CONC 32.5 g/dL (33.0-37.0); WHITE BLOOD COUNT 12.3 K/uL (4.8-10.8)
[2017-04-29] MEDS: Levothyroxine 125 MCG TAB PO SCH (06:20)
[2017-04-29] MEDS: Cefepime 1 GM in Sodium Chloride 0.9% 100 ML IVPB SCH ×2 (09:04→21:33)
[2017-04-29] MEDS: Divalproex 500 mg DR(BID formulation) PO SCH ×2 (09:05→17:44)
[2017-04-29 09:14] LABS: MEAN CELL VOLUME 85.4 fl (81.0-99.0); MEAN CORPUSCULAR HGB CONC 32.8 g/dL (33.0-37.0); RED CELL DISTRIBUTION WIDTH 14.8 % (11.5-14.5); WHITE BLOOD COUNT 10.3 K/uL (4.8-10.8)
[2017-04-29 09:23] LABS: BLOOD UREA NITROGEN 6 mg/dl (7-17); CALCIUM 8.6 mg/dL (8.4-10.2); CARBON DIOXIDE 24 mmol/L (22-30); CHLORIDE 112 mmol/L (98-107); GFR AFRICAN-AMERICAN > 60; GLUCOSE,RANDOM 82 mg/dL (65-105); POTASSIUM 3.4 MMOL/L (3.6-5.0); SODIUM 139 mmol/l (132-148)
[2017-04-29] MEDS ORDERED: Potassium Chloride 20 mEq ER Tab PO ONE (10:04)
--- NOTE | 2017-04-29 13:10 | CP.PCM.PN ---
Subjective - Date & Time of Evaluation Date of Evaluation: 04/29/17 Time of Evaluation: 07:00 - Subjective Subjective: improving on iv rx rx in progress Objective - Vital Signs/Intake and Output Vital Signs (last 24 hours): Temp Pulse Resp BP Pulse Ox 98.8 F 60 20 132/91 H 93 L 04/29/17 07:41 04/29/17 07:41 04/29/17 07:41 04/29/17 07:41 04/29/17 07:41 Intake and Output: 04/29/17 04/29/17 06:59 18:59 Intake Total 400 Output Total 650 Balance -250 - Medications Medications: Current Medications Apixaban (Eliquis) 5 mg PO BID@0900,2100 [facility] PRN Reason: Protocol Last Admin: 04/29/17 09:05 Dose: 5 mg Aripiprazole (Abilify) 2 mg PO HS [facility] Last Admin: 04/28/17 22:06 Dose: 2 mg Citalopram Hydrobromide (Celexa) 20 mg PO DAILY [facility] Last Admin: 04/29/17 09:05 Dose: 20 mg Divalproex Sodium (Depakote Dr(*Bid*)) 500 mg PO BID [facility] Last Admin: 04/29/17 09:05 Dose: 500 mg Cefepime HCl 1 gm/ Sodium (Chloride) 100 mls @ 100 mls/hr IVPB Q12 ANGIE PRN Reason: Protocol Last Admin: 04/29/17 09:04 Dose: 100 mls/hr Vancomycin HCl 1 gm/ Sodium (Chloride) 250 mls @ 250 mls/hr IVPB Q12@0200,1400 ANGIE PRN Reason: Protocol Last Admin: 04/29/17 02:21 Dose: 250 mls/hr Levothyroxine Sodium (Synthroid) 125 mcg PO DAILY@0630 [facility] Last Admin: 04/29/17 06:20 Dose: 125 mcg Mirtazapine (Remeron) 15 mg PO HS [facility] Last Admin: 04/28/17 22:05 Dose: 15 mg - Labs Labs: 04/29/17 09:10 04/29/17 09:10 PT 10.8 Seconds (9.8-13.1) 04/27/17 08:28 INR 1.0 (0.9-1.2) 04/27/17 08:28 APTT 31.1 Seconds (25.6-37.1) 04/27/17 08:28 - Constitutional Appears: Non-toxic, Chronically Ill - Head Exam Head Exam: NORMOCEPHALIC - Eye Exam Eye Exam: PERRL - ENT Exam ENT Exam: Mucous Membranes Dry - Neck Exam Neck Exam: absent: Lymphadenopathy - Respiratory Exam Respiratory Exam: Decreased Breath Sounds - Cardiovascular Exam Cardiovascular Exam: REGULAR RHYTHM Assessment and Plan (1) CAP (community acquired pneumonia) Status: Acute (2) Polysubstance abuse Status: Acute (3) Septic shock Status: Acute
--- NOTE | 2017-04-29 15:00 | RAD ---
HISTORY: F/u pneumonia COMPARISON: 04/27/2017 TECHNIQUE: Chest PA and lateral FINDINGS: LUNGS: There is an increasing infiltrate in the right lower lobe. PLEURA: Small right pleural effusion CARDIOVASCULAR: Normal. OSSEOUS STRUCTURES: No significant abnormalities. VISUALIZED UPPER ABDOMEN: Normal. OTHER FINDINGS: None. IMPRESSION: Increasing infiltrate in the right lower lobe
--- NOTE | 2017-04-29 18:22 | CP.PCM.PN ---
<Patricia Back - Last Filed: 04/29/17 18:33> Subjective - Date & Time of Evaluation Date of Evaluation: 04/29/17 Time of Evaluation: 07:20 - Subjective Subjective: Patient seen and examined in MedSurg unit with attending Dr. Hyatt this morning. Patient feels better this morning, and denies any complains at this evaluation. Patient was transferred from ICU unit yesterday, has been afebrile for more than 24 hours. Had an uneventful night. Objective - Vital Signs/Intake and Output Vital Signs (last 24 hours): Temp Pulse Resp BP Pulse Ox 98.4 F 77 20 118/82 96 04/29/17 16:51 04/29/17 16:51 04/29/17 16:51 04/29/17 16:51 04/29/17 16:51 Intake and Output: 04/29/17 04/29/17 06:59 18:59 Intake Total 400 Output Total 650 Balance -250 - Medications Medications: Current Medications Apixaban (Eliquis) 5 mg PO BID@0900,2100 [facility] PRN Reason: Protocol Last Admin: 04/29/17 09:05 Dose: 5 mg Aripiprazole (Abilify) 2 mg PO HS [facility] Last Admin: 04/28/17 22:06 Dose: 2 mg Citalopram Hydrobromide (Celexa) 20 mg PO DAILY [facility] Last Admin: 04/29/17 09:05 Dose: 20 mg Divalproex Sodium (Depakote Dr(*Bid*)) 500 mg PO BID [facility] Last Admin: 04/29/17 17:44 Dose: 500 mg Cefepime HCl 1 gm/ Sodium (Chloride) 100 mls @ 100 mls/hr IVPB Q12 ANGIE PRN Reason: Protocol Last Admin: 04/29/17 09:04 Dose: 100 mls/hr Vancomycin HCl 1 gm/ Sodium (Chloride) 250 mls @ 250 mls/hr IVPB Q12@0200,1400 [facility] PRN Reason: Protocol Last Admin: 04/29/17 14:08 Dose: 250 mls/hr Levothyroxine Sodium (Synthroid) 125 mcg PO DAILY@0630 [facility] Last Admin: 04/29/17 06:20 Dose: 125 mcg Mirtazapine (Remeron) 15 mg PO HS [facility] Last Admin: 04/28/17 22:05 Dose: 15 mg - Labs Labs: 04/29/17 09:10 04/29/17 09:10 PT 10.8 Seconds (9.8-13.1) 04/27/17 08:28 INR 1.0 (0.9-1.2) 04/27/17 08:28 APTT 31.1 Seconds (25.6-37.1) 04/27/17 08:28 - Constitutional Appears: Non-toxic, No Acute Distress - ENT Exam ENT Exam: Mucous Membranes Moist - Respiratory Exam Respiratory Exam: NORMAL BREATHING PATTERN - Cardiovascular Exam Cardiovascular Exam: REGULAR RHYTHM, RRR, +S1, +S2 - GI/Abdominal Exam GI & Abdominal Exam: Soft, Normal Bowel Sounds. absent: Distended, Guarding, Rigid, Tenderness - Neurological Exam Neurological Exam: Alert, Awake, Oriented x3 Assessment and Plan (1) CAP (community acquired pneumonia) Assessment & Plan: improving clinically c/w antibiotics Status: Acute (2) Septic shock Assessment & Plan: improving transferred to [facility] Afebrile for more than 24 hours c/w IV antibiotics Status: Acute (3) Hypothyroidism Assessment & Plan: uncontrolled c/w Levothyroxine 125 mcg will need to check TSH in 4 weeks, and adjust dose as needed Status: Chronic (4) Hypokalemia Assessment & Plan: today K+3.4 replace potassium f/u bmp Status: Acute (5) Chronic deep vein thrombosis (DVT) Assessment & Plan: as per records on Eliquis PO BID -c/w Eliquis Status: Chronic (6) DVT prophylaxis Assessment & Plan: On eliquis Status: Acute <Hyatt,Gutierrez K - Last Filed: 04/30/17 11:19> Objective - Vital Signs/Intake and Output Vital Signs (last 24 hours): Temp Pulse Resp BP Pulse Ox 98.1 F 66 20 131/84 97 04/30/17 07:15 04/30/17 07:15 04/30/17 07:15 04/30/17 07:15 04/30/17 07:15 - Medications Medications: Current Medications Apixaban (Eliquis) 5 mg PO BID@0900,2100 [facility] PRN Reason: Protocol Last Admin: 04/30/17 09:17 Dose: 5 mg Aripiprazole (Abilify) 2 mg PO HS [facility] Last Admin: 04/29/17 21:35 Dose: 2 mg Citalopram Hydrobromide (Celexa) 20 mg PO DAILY [facility] Last Admin: 04/30/17 09:17 Dose: 20 mg Divalproex Sodium (Depakote Dr(*Bid*)) 500 mg PO BID [facility] Last Admin: 04/30/17 09:17 Dose: 500 mg Guaifenesin/Dextromethorphan (Mucinex-Dm 600-30 Mg) 1 tab PO BID [facility] Cefepime HCl 1 gm/ Sodium (Chloride) 100 mls @ 100 mls/hr IVPB Q12 ANGIE PRN Reason: Protocol Last Admin: 04/30/17 09:17 Dose: 100 mls/hr Vancomycin HCl 1 gm/ Sodium (Chloride) 250 mls @ 250 mls/hr IVPB Q12@0200,1400 [facility] PRN Reason: Protocol Last Admin: 04/30/17 02:44 Dose: 250 mls/hr Levothyroxine Sodium (Synthroid) 125 mcg PO DAILY@0630 [facility] Last Admin: 04/30/17 05:38 Dose: 125 mcg Mirtazapine (Remeron) 15 mg PO HS [facility] Last Admin: 04/29/17 21:35 Dose: 15 mg - Labs Labs: 04/30/17 05:30 04/30/17 05:30 PT 10.8 Seconds (9.8-13.1) 04/27/17 08:28 INR 1.0 (0.9-1.2) 04/27/17 08:28 APTT 31.1 Seconds (25.6-37.1) 04/27/17 08:28 Assessment and Plan - Assessment and Plan (Free Text) Assessment: Patient was personally seen and examined by me in rounds with residents. Available labs and diagnostic data reviewed. Case, Patient's condition and management plan discussed with residents in rounds. Agree with resident's progress note. Plan: As ordered.
[2017-04-30] MEDS: Levothyroxine 125 MCG TAB PO SCH (05:38)
[2017-04-30 06:21] LABS: HEMATOCRIT 32.4 % (34.0-47.0); MEAN CELL VOLUME 84.3 fl (81.0-99.0); MEAN CORPUSCULAR HGB CONC 33.2 g/dL (33.0-37.0); RED CELL DISTRIBUTION WIDTH 14.6 % (11.5-14.5); WHITE BLOOD COUNT 10.1 K/uL (4.8-10.8)
[2017-04-30 06:39] LABS: ALB/GLOB RATIO 0.9 (1.0-2.1); ALKALINE PHOSPHATASE 65 U/L (38-126); ALT/SGPT 31 U/L (9-52); AST/SGOT 27 U/L (14-36); BILIRUBIN,TOTAL 0.3 mg/dl (0.2-1.3); BLOOD UREA NITROGEN 6 mg/dl (7-17); CALCIUM 8.2 mg/dL (8.4-10.2); CARBON DIOXIDE 25 mmol/L (22-30); CHLORIDE 113 mmol/L (98-107); GFR AFRICAN-AMERICAN > 60; GLUCOSE,RANDOM 81 mg/dL (65-105); POTASSIUM 3.6 MMOL/L (3.6-5.0); SODIUM 144 mmol/l (132-148); TOTAL PROTEIN 6.4 G/DL (6.3-8.2)
--- NOTE | 2017-04-30 08:19 | CP.PCM.PN ---
<Patricia Back - Last Filed: 04/30/17 09:14> Subjective - Date & Time of Evaluation Date of Evaluation: 04/30/17 Time of Evaluation: 07:40 - Subjective Subjective: Patient seen and examined in MedSurg unit with attending Dr. Hyatt this morning. Feeling better. C/O a wet non productive cough. Has been afebrile, rest of VS stable WNL on IV antibiotics Vanco and cefepime as per ID recommendations Had an uneventful night Objective - Vital Signs/Intake and Output Vital Signs (last 24 hours): Temp Pulse Resp BP Pulse Ox 98.1 F 66 20 131/84 97 04/30/17 07:15 04/30/17 07:15 04/30/17 07:15 04/30/17 07:15 04/30/17 07:15 - Medications Medications: Current Medications Apixaban (Eliquis) 5 mg PO BID@0900,2100 [facility] PRN Reason: Protocol Last Admin: 04/29/17 21:34 Dose: 5 mg Aripiprazole (Abilify) 2 mg PO HS [facility] Last Admin: 04/29/17 21:35 Dose: 2 mg Citalopram Hydrobromide (Celexa) 20 mg PO DAILY [facility] Last Admin: 04/29/17 09:05 Dose: 20 mg Divalproex Sodium (Depakote Dr(*Bid*)) 500 mg PO BID ANGIE Last Admin: 04/29/17 17:44 Dose: 500 mg Cefepime HCl 1 gm/ Sodium (Chloride) 100 mls @ 100 mls/hr IVPB Q12 ANGIE PRN Reason: Protocol Last Admin: 04/29/17 21:33 Dose: 100 mls/hr Vancomycin HCl 1 gm/ Sodium (Chloride) 250 mls @ 250 mls/hr IVPB Q12@0200,1400 [facility] PRN Reason: Protocol Last Admin: 04/30/17 02:44 Dose: 250 mls/hr Levothyroxine Sodium (Synthroid) 125 mcg PO DAILY@0630 [facility] Last Admin: 04/30/17 05:38 Dose: 125 mcg Mirtazapine (Remeron) 15 mg PO HS [facility] Last Admin: 04/29/17 21:35 Dose: 15 mg - Labs Labs: 04/30/17 05:30 04/30/17 05:30 PT 10.8 Seconds (9.8-13.1) 04/27/17 08:28 INR 1.0 (0.9-1.2) 04/27/17 08:28 APTT 31.1 Seconds (25.6-37.1) 04/27/17 08:28 - Constitutional Appears: Non-toxic, No Acute Distress - ENT Exam ENT Exam: Mucous Membranes Moist - Respiratory Exam Respiratory Exam: Decreased Breath Sounds (right lower lobe), Clear to Ausculation Bilateral, NORMAL BREATHING PATTERN. absent: Rales, Rhonchi, Wheezes, Stridor - Cardiovascular Exam Cardiovascular Exam: REGULAR RHYTHM, RRR, +S1, +S2 - GI/Abdominal Exam GI & Abdominal Exam: Soft, Normal Bowel Sounds. absent: Distended, Guarding, Rigid, Tenderness - Extremities Exam Extremities Exam: Normal Inspection. absent: Calf Tenderness, Pedal Edema - Neurological Exam Neurological Exam: Alert, Awake, Oriented x3 Assessment and Plan (1) CAP (community acquired pneumonia) Assessment & Plan: clinically improving afebrile c/w antibiotics Vanco trough 11.4 f/u ID recommendations for Vanco dose adjustment based on vanco trough repeat CXR yesterday shoed increasing infiltrate in right lower lobe Status: Acute (2) Septic shock Assessment & Plan: resolved afebrile, no tachy WBC WNL c/w IV antibiotics as per ID recommendations Vanco trough 11.4 Status: Acute (3) Hypothyroidism Status: Chronic (4) Hypokalemia Assessment & Plan: resolved after replacement Status: Acute (5) Chronic deep vein thrombosis (DVT) Assessment & Plan: on eliquis Status: Chronic (6) DVT prophylaxis Assessment & Plan: on eliquis Status: Acute <Hyatt,Gutierrez K - Last Filed: 04/30/17 11:22> Objective - Vital Signs/Intake and Output Vital Signs (last 24 hours): Temp Pulse Resp BP Pulse Ox 98.1 F 66 20 131/84 97 04/30/17 07:15 04/30/17 07:15 04/30/17 07:15 04/30/17 07:15 04/30/17 07:15 - Medications Medications: Current Medications Apixaban (Eliquis) 5 mg PO BID@0900,2100 [facility] PRN Reason: Protocol Last Admin: 12/14/17 09:17 Dose: 5 mg Aripiprazole (Abilify) 2 mg PO HS [facility] Last Admin: 04/29/17 21:35 Dose: 2 mg Citalopram Hydrobromide (Celexa) 20 mg PO DAILY [facility] Last Admin: 04/30/17 09:17 Dose: 20 mg Divalproex Sodium (Depakote Dr(*Bid*)) 500 mg PO BID [facility] Last Admin: 04/30/17 09:17 Dose: 500 mg Guaifenesin/Dextromethorphan (Mucinex-Dm 600-30 Mg) 1 tab PO BID [facility] Cefepime HCl 1 gm/ Sodium (Chloride) 100 mls @ 100 mls/hr IVPB Q12 ANGIE PRN Reason: Protocol Last Admin: 04/30/17 09:17 Dose: 100 mls/hr Vancomycin HCl 1 gm/ Sodium (Chloride) 250 mls @ 250 mls/hr IVPB Q12@0200,1400 [facility] PRN Reason: Protocol Last Admin: 04/30/17 02:44 Dose: 250 mls/hr Levothyroxine Sodium (Synthroid) 125 mcg PO DAILY@0630 [facility] Last Admin: 04/30/17 05:38 Dose: 125 mcg Mirtazapine (Remeron) 15 mg PO HS [facility] Last Admin: 04/29/17 21:35 Dose: 15 mg - Labs Labs: 04/30/17 05:30 04/30/17 05:30 PT 10.8 Seconds (9.8-13.1) 04/27/17 08:28 INR 1.0 (0.9-1.2) 04/27/17 08:28 APTT 31.1 Seconds (25.6-37.1) 04/27/17 08:28 Assessment and Plan - Assessment and Plan (Free Text) Assessment: Patient was personally seen and examined by me in rounds with residents. Available labs and diagnostic data reviewed. Case, Patient's condition and management plan discussed with residents in rounds. Agree with resident's progress note. Plan: As ordered.
[2017-04-30] MEDS: Divalproex 500 mg DR(BID formulation) PO SCH ×2 (09:17→17:33)
[2017-04-30] MEDS: Cefepime 1 GM in Sodium Chloride 0.9% 100 ML IVPB SCH ×2 (09:17→21:17)
[2017-04-30] MEDS: guaiFENesin-DM 600-30 mg ER Tab PO SCH ×2 (12:26→17:33)
[2017-04-30 15:44] VITALS: RESP 18
[2017-05-01 05:54] VITALS: TEMP 98.4
[2017-05-01] MEDS: Levothyroxine 125 MCG TAB PO SCH (06:45)
[2017-05-01 07:25] VITALS: BP 140/93; PULSE 55; O2SAT 97
[2017-05-01] MEDS: Divalproex 500 mg DR(BID formulation) PO SCH ×2 (08:37→16:11)
[2017-05-01] MEDS: Cefepime 1 GM in Sodium Chloride 0.9% 100 ML IVPB SCH (08:38)
[2017-05-01] MEDS: guaiFENesin-DM 600-30 mg ER Tab PO SCH ×2 (08:39→16:11)
--- NOTE | 2017-05-01 09:09 | PN ---
DATE: 05/01/2017 SUBJECTIVE: The patient is seen and examined. Interim events noted. Consults noted and appreciated. The patient remains in regular medical floor on IV antibiotic. The patient feels okay. Denies any chest pain, shortness of breath or coughing. Overall, the patient is feeling better. PHYSICAL EXAMINATION: GENERAL: The patient is in no acute distress. VITAL SIGNS: Stable. HEART: S1 and S2, normal and regular. LUNGS: Good bilateral air exchange. ABDOMEN: Soft, nontender. EXTREMITIES: No edema. No calf swelling. No tenderness. No acute ischemia. CENTRAL NERVOUS SYSTEM: Essentially unchanged. DIAGNOSTIC DATA: Available diagnostic data reviewed. Blood culture remains negative so far. ASSESSMENT AND PLAN: Overall, the patient is clinically improving. Plan as ordered. Case and plan discussed with the patient. Gutierrez Hyatt MD
--- NOTE | 2017-05-01 12:30 | CP.PCM.PN ---
Subjective - Date & Time of Evaluation Date of Evaluation: 05/01/17 Time of Evaluation: 09:00 - Subjective Subjective: still coughing no CP or SOB cont IV then PO rx follow up CXR Objective - Vital Signs/Intake and Output Vital Signs (last 24 hours): Temp Pulse Resp BP Pulse Ox 98.4 F 55 L 18 140/93 H 97 05/01/17 07:24 05/01/17 07:24 05/01/17 07:24 05/01/17 07:24 05/01/17 07:24 - Medications Medications: Current Medications Apixaban (Eliquis) 5 mg PO BID@0900,2100 [facility] PRN Reason: Protocol Last Admin: 05/01/17 08:38 Dose: 5 mg Aripiprazole (Abilify) 2 mg PO HS [facility] Last Admin: 04/30/17 21:17 Dose: 2 mg Citalopram Hydrobromide (Celexa) 20 mg PO DAILY [facility] Last Admin: 05/01/17 08:37 Dose: 20 mg Divalproex Sodium (Depakote Dr(*Bid*)) 500 mg PO BID [facility] Last Admin: 05/01/17 08:37 Dose: 500 mg Guaifenesin/Dextromethorphan (Mucinex-Dm 600-30 Mg) 1 tab PO BID [facility] Last Admin: 05/01/17 08:39 Dose: 1 tab Cefepime HCl 1 gm/ Sodium (Chloride) 100 mls @ 100 mls/hr IVPB Q12 ANGIE PRN Reason: Protocol Last Admin: 05/01/17 08:38 Dose: 100 mls/hr Vancomycin HCl 1 gm/ Sodium (Chloride) 250 mls @ 250 mls/hr IVPB Q12@0200,1400 [facility] PRN Reason: Protocol Last Admin: 05/01/17 02:47 Dose: 250 mls/hr Levothyroxine Sodium (Synthroid) 125 mcg PO DAILY@0630 [facility] Last Admin: 05/01/17 06:45 Dose: 125 mcg Mirtazapine (Remeron) 15 mg PO HS [facility] Last Admin: 04/30/17 21:17 Dose: 15 mg - Labs Labs: 04/30/17 05:30 04/30/17 05:30 PT 10.8 Seconds (9.8-13.1) 04/27/17 08:28 INR 1.0 (0.9-1.2) 04/27/17 08:28 APTT 31.1 Seconds (25.6-37.1) 04/27/17 08:28 - Constitutional Appears: Non-toxic, Chronically Ill - Head Exam Head Exam: NORMOCEPHALIC - Eye Exam Eye Exam: PERRL - ENT Exam ENT Exam: Mucous Membranes Dry - Neck Exam Neck Exam: absent: Lymphadenopathy - Respiratory Exam Respiratory Exam: Decreased Breath Sounds - Cardiovascular Exam Cardiovascular Exam: REGULAR RHYTHM - GI/Abdominal Exam GI & Abdominal Exam: Distended, Soft - Rectal Exam Rectal Exam: Deferred - Extremities Exam Extremities Exam: absent: Pedal Edema - Back Exam Back Exam: absent: CVA tenderness (L), CVA tenderness (R) - Neurological Exam Neurological Exam: Alert, Awake, Oriented x3 Assessment and Plan (1) CAP (community acquired pneumonia) Status: Acute (2) Polysubstance abuse Status: Acute (3) Septic shock Status: Acute
--- NOTE | 2017-05-01 13:30 | RAD ---
HISTORY: F/u pneumonia COMPARISON: 04/29/2017 TECHNIQUE: Chest PA and lateral FINDINGS: LUNGS: Interval improvement right lower lobe infiltrate compared to the prior study. Residual linear atelectasis. Underlying hyperinflation/manifestations of COPD. PLEURA: No significant pleural effusion identified. No pneumothorax apparent. CARDIOVASCULAR: Normal. OSSEOUS STRUCTURES: No significant abnormalities. VISUALIZED UPPER ABDOMEN: Normal. OTHER FINDINGS: None. IMPRESSION: Near complete resolution right lower lobe infiltrate. Pleural effusion identified previously is not seen on the current study.
--- NOTE | 2017-05-01 15:07 | CP.PCM.PCO ---
Assessment/Plan - Assessment/Plan Assessment (Free Text): Triple lumen catheter to right groin removed with tip intact. No bleeding or discharge noted. Pressure dressing applied. Pt tolerated well. Pt instructed to lay down for 30 mins before getting up. RN to monitor dressing for any bleeding. Pt left in bed, stable, to be discharged later today.
== END 2017-05-01 19:15 | disposition home or self-care (01) | DRG 871 ==
LOC: H.ER 07:09 → H.ERHOLD 11:00 → H.ICU/CCU 11:59 → H.MEDSURG1 04-29 01:40
PROVIDERS: ADMIT Internal Medicine; ATTEND Internal Medicine
DX: A41.9 Sepsis, unspecified organism (principal); R65.21 Severe sepsis with septic shock; E87.4 Mixed disorder of acid-base balance; J18.9 Pneumonia, unspecified organism; I82.502 Chronic embolism and thrombosis of unspecified deep veins of left lower extremity; R09.02 Hypoxemia; I73.9 Peripheral vascular disease, unspecified; E87.6 Hypokalemia; E03.9 Hypothyroidism, unspecified; F19.10 Other psychoactive substance abuse, uncomplicated; E78.00 Pure hypercholesterolemia, unspecified; F31.9 Bipolar disorder, unspecified; J45.909 Unspecified asthma, uncomplicated; F41.9 Anxiety disorder, unspecified; F17.210 Nicotine dependence, cigarettes, uncomplicated; Z79.01 Long term (current) use of anticoagulants; Z91.013 Allergy to seafood

== ENCOUNTER 2017-09-01 21:45 | Emergency (ER) | payer MEDICAID, MEDICARE ==
[2017-09-01 21:45] VITALS: BMI 29.2
[2017-09-01 22:04] VITALS: BP 128/78; PULSE 74; RESP 18; TEMP 98.5; O2SAT 98
--- NOTE | 2017-09-01 22:47 | ED PDOC ---
HPI: Dental Pain/Injury Time Seen by Provider: 09/01/17 22:09 Chief Complaint (Nursing): Dental Pain Chief Complaint (Provider): Dental pain, anxiety History Per: Patient History/Exam Limitations: no limitations Onset/Duration Of Symptoms: Days Additional Complaint(s): Pt reports right lower dental pain for 1 week. She states she has not seen a dentist yet. Pt is taking motrin without relief. PT also reports anxiety and requesting prescription for anxiety medications. Past Medical History Reviewed: Historical Data, Nursing Documentation, Vital Signs Vital Signs: Last Vital Signs Temp 98.5 F 09/01/17 21:56 Pulse 74 09/01/17 21:56 Resp 18 09/01/17 21:56 BP 128/78 09/01/17 21:56 Pulse Ox 98 09/01/17 21:56 - Medical History PMH: Anxiety, Asthma, Bipolar Disorder, Depression, Hypercholesterolemia, Hyperthyroidism Denies: Cardia Arrhythmia, Diabetes, Hepatitis, HIV, HTN, Chronic Kidney Disease, Seizures, Sexually Transmitted Disease - Surgical History Surgical History: Denies: Pacemaker - Family History Family History: States: Unknown Family Hx - Immunization History Hx Tetanus Toxoid Vaccination: No Hx Influenza Vaccination: No Hx Pneumococcal Vaccination: No - Home Medications Home Medications: Ambulatory Orders Medication Instructions Recorded Levothyroxine [Synthroid] 100 mcg PO DAILY 10/26/16 Gabapentin [Neurontin] 400 mg PO TID 01/23/17 ARIPiprazole [Abilify] 2 mg PO HS 04/27/17 Apixaban [Eliquis] 5 mg PO Q12H 04/27/17 Citalopram [celEXA] 20 mg PO DAILY 04/27/17 Divalproex [Depakote DR] 500 mg PO BID 04/27/17 Mirtazapine [Remeron] 15 mg PO HS 04/27/17 Topiramate [Topamax] 50 mg PO HS 04/27/17 clonazePAM [Klonopin] 0.5 mg PO TID PRN 04/27/17 Amoxicillin/Clavulanate [Augmentin 1 tab PO BID #14 tab 05/01/17 875 MG-125 MG] traMADol [Ultram] 50 mg PO Q6H PRN #5 tab 09/01/17 - Allergies Allergies/Adverse Reactions: Allergies Allergy/AdvReac Type Severity Reaction Status Date / Time meperidine [From Demerol] Allergy RASH Verified 01/26/17 10:51 shellfish derived Allergy SWELLING Verified 01/26/17 10:51 Review of Systems ROS Statement: Except As Marked, All Systems Reviewed And Found Negative Constitutional: Negative for: Fever, Chills ENT: Positive for: Other (Right lower dental pain ) Psych: Positive for: Anxiety Physical Exam - Reviewed Nursing Documentation Reviewed: Yes Vital Signs Reviewed: Yes - Physical Exam Appears: Positive for: Well, Non-toxic, No Acute Distress Head Exam: Positive for: ATRAUMATIC, NORMAL INSPECTION, NORMOCEPHALIC Skin: Positive for: Normal Color, Warm, DRY Eye Exam: Positive for: Normal appearance ENT: Positive for: Normal ENT Inspection Neck: Positive for: Normal, Painless ROM Cardiovascular/Chest: Positive for: Regular Rate, Rhythm Respiratory: Positive for: Normal Breath Sounds. Negative for: Accessory Muscle Use, Respiratory Distress Gastrointestinal/Abdominal: Positive for: Normal Exam, Soft Back: Positive for: Normal Inspection Extremity: Positive for: Normal ROM Neurologic/Psych: Positive for: Alert, Oriented - ECG O2 Sat by Pulse Oximetry: 98 Disposition - Clinical Impression Clinical Impression: Pain, dental, Anxiety - Patient ED Disposition Is Patient to be Admitted: No Counseled Patient/Family Regarding: Diagnosis, Need For Followup, Rx Given - Disposition Disposition: Routine/Home Disposition Time: 22:49 Condition: STABLE Prescriptions: traMADol [Ultram] 50 mg PO Q6H PRN #5 tab PRN Reason: Pain Instructions: Anxiety, Adult (DC) Forms: [employer] ([employer])
== END 2017-09-01 23:05 | disposition home or self-care (01) ==
LOC: H.ER 21:45
DX: K08.89 Other specified disorders of teeth and supporting structures (principal); F41.9 Anxiety disorder, unspecified; E05.90 Thyrotoxicosis, unspecified without thyrotoxic crisis or storm; E78.00 Pure hypercholesterolemia, unspecified; F31.9 Bipolar disorder, unspecified; J45.909 Unspecified asthma, uncomplicated; Z79.01 Long term (current) use of anticoagulants